=== PATIENT | male | born 1950 | race Caucasian/White ===

== ENCOUNTER 2017-01-19 13:49 | Inpatient (IN) | payer OTHER ==
[2017-01-19 15:55] VITALS: BMI 25.8
--- NOTE | 2017-01-19 18:16 | HP ---
COWS - Scale Resting Pulse: 1= CT 81-100 Sweatin= Chills/Flushing Restless Observation: 3= Extraneous Movement Pupil Size: 0= Normal to Room Light Bone or Joint Aches: 2= Severe Diffuse Aches Runny Nose/ Eye Tearin= Runny Nose/Eyes GI Upset > 30mins: 1= Stomach Cramp Tremor Observation: 2= Slight Tremor Visible Yawning Observation: 0= None Anxiety or Irritability: 2=Irritable/Anxious Goose Flesh Skin: 0=Smooth Skin COWS Score: 14 CIWA Score - CIWA Score Nausea/Vomitin-Mild Nausea/No Vomiting Muscle Tremors: 4-Moderate,w/Arms Extend Anxiety: 4-Mod. Anxious/Guarded Agitation: 4-Moderately Restless Paroxysmal Sweats: 1-Minimal Palms Moist Orientation: 1-Uncertain about Date Tacttile Disturbances: 0-None Auditory Disturbances: 0-None Visual Disturbances: 0-None Headache: 0-None Present CIWA-Ar Total Score: 15 Admission ROS S - HPI Chief Complaint: withdrawal sx Allergies/Adverse Reactions: Allergies Allergy/AdvReac Type Severity Reaction Status Date / Time Sulfa (Sulfonamide Allergy Severe Hives Verified 01/19/17 17:32 Antibiotics) History of Present Illness: 66 years old male with long history of alcohol opiate nicotine dependence has seizure asthma copd cardiac arrhythemia and anxiety is admitted to detox LAST DOSE PROPRANOLOL 80 MG 12/19/16 Exam Limitations: No Limitations - Ebola screening Have you traveled outside of the country in the last 21 days: No (N) Have you had contact with anyone from an Ebola affected area: No Have you been sick,other than usual withdrawal symptoms: No Do you have a fever: No - Review of Systems Constitutional: Changes in sleep, Weight Stable EENT: reports: Blurred Vision (eye glasses), Dental Problems (multiple teeth missing) Respiratory: reports: SOB with Exertion, Productive cough (yellowish) GI: reports: Nausea, Poor Fluid Intake, Abdominal cramping : reports: No Symptoms Reported Musculoskeletal: reports: Back Pain, Joint Pain, Muscle Pain, Neck Pain Integumentary: reports: Change in Color (hands) Neuro: reports: Seizure (since age 65, tegretol), Tremors Endocrine: reports: No Symptoms Reported Hematology: reports: No Symptoms Reported Psychiatric: reports: Judgement Intact, Anxious, Depressed Other Systems: Reviewed and Negative Patient History - Patient Medical History Hx Anemia: No Hx Asthma: Yes Hx Chronic Obstructive Pulmonary Disease (COPD): Yes Hx Cancer: No Hx Cardiac Disorders: No Hx Hypertension: Yes Hx Hypercholesterolemia: No Hx Pacemaker: No HX Cerebrovascular Accident: No Hx Seizures: Yes (x 1 year) Hx Dementia: No Hx Diabetes: No Hx Gastrointestinal Disorders: No Hx Liver Disease: No Hx Genitourinary Disorders: No Hx Sexually Transmitted Disorders: No Hx Renal Disease (ESRD): No Hx Thyroid Disease: No Hx Human Immunodeficiency Virus (HIV): No Hx Hepatitis C: Yes Hx Depression: Yes Hx Suicide Attempt: Yes (age 15, cut arms) Hx Bipolar Disorder: No Hx Schizophrenia: No - Patient Surgical History Past Surgical History: Yes Hx Neurologic Surgery: Yes (spinal lower 1997 2006 and 2014 ) Hx Cataract Extraction: No Hx Cardiac Surgery: No Hx Lung Surgery: No Hx Breast Surgery: No Hx Breast Biopsy: No Hx Abdominal Surgery: No Hx Appendectomy: No Hx Cholecystectomy: No Hx Genitourinary Surgery: No Hx Orthopedic Surgery: Yes (knees 2011) Anesthesia Reaction: No - PPD History Previous Implant?: Yes Documented Results: Negative w/o proof Implanted On Prior [facility] Admission?: No PPD to be Administered?: Yes - Smoking Cessation Smoking history: Current every day smoker Have you smoked in the past 12 months: Yes Aproximately how many cigarettes per day: 40 Cigars Per Day: 0 Hx Chewing Tobacco Use: No Initiated information on smoking cessation: Yes 'Breaking Loose' booklet given: 01/19/17 - Substance & Tx. History Hx Alcohol Use: Yes Substance Use Type: None, Alcohol, Heroin Hx Substance Use Treatment: Yes (2009 [facility]) - Substances Abused Alcohol Route: Oral Frequency: Daily Amount used: whisky 1 L Age of first use: 16 Date of Last Use: 01/19/17 Heroin Route: Injection Frequency: Daily Amount used: 5 BAGS Age of first use: 56 Date of Last Use: 01/19/17 Family Disease History - Family Disease History Family Disease History: Heart Disease: Mother, [place]: Father Admission Physical Exam [facility] - Vital Signs Vital Signs: Vital Signs - 24 hr 01/19/17 15:51 Temperature 97.4 F L Pulse Rate 82 Respiratory 20 Rate Blood Pressure 129/83 - Physical General Appearance: Yes: Nourished, Appropriately Dressed, Mild Distress, Alcohol on Breath, Tremorous, Irritable, Sweating, Anxious HEENTM: Yes: Hearing grossly Normal, Normal ENT Inspection, Normocephalic, Normal Voice, Other (EYE GLASSES) Respiratory: Yes: Chest Non-Tender, No Respiratory Distress, No Accessory Muscle Use Neck: Yes: Supple, Trachea in good position Breast: Yes: Breasts Symetrical Cardiology: Yes: Regular Rhythm, Regular Rate, S1, S2 Abdominal: Yes: Non Tender, Soft, Increased Bowel Sounds Genitourinary: Yes: Within Normal Limits Back: Yes: Normal Inspection Musculoskeletal: Yes: full range of Motion, Gait Steady, Back pain, Muscle Pain Extremities: Yes: Normal Range of Motion, Non-Tender, Tremors Neurological: Yes: Alert, Motor Strength 5/5, Normal Response, Depressed Affect Integumentary: Yes: Warm, Track [place] Lymphatic: Yes: Within Normal Limits - Diagnostic (1) Alcohol dependence with uncomplicated withdrawal Current Visit: Yes Status: Acute (2) Opioid dependence with withdrawal Current Visit: Yes Status: Acute (3) Nicotine dependence Current Visit: Yes Status: Acute Qualifiers: Nicotine product type: cigarettes Substance use status: in withdrawal Qualified Code(s): F17.213 - Nicotine dependence, cigarettes, with withdrawal (4) Asthma Current Visit: Yes Status: Chronic Qualifiers: Asthma severity: mild persistent Asthma complication type: with status asthmaticus Qualified Code(s): J45.32 - Mild persistent asthma with status asthmaticus (5) COPD (chronic obstructive pulmonary disease) Current Visit: Yes Status: Chronic Qualifiers: COPD type: emphysema Emphysema type: unspecified Qualified Code( s): J43.9 - Emphysema, unspecified (6) Hypertension Current Visit: Yes Status: Acute Qualifiers: Hypertension type: essential hypertension Qualified Code(s): I10 - Essential (primary) hypertension (7) Hepatitis C Current Visit: Yes Status: Acute Qualifiers: Viral hepatitis chronicity: chronic Hepatic coma status: without hepatic coma Qualified Code(s): B18.2 - Chronic viral hepatitis C (8) Cerumen debris on tympanic membrane of both ears Current Visit: Yes Status: Acute (9) Anxiety and depression Current Visit: Yes Status: Suspected Cleared for Admission [facility] - Detox or Rehab S Level of Care: Medically Managed Detox Regimen/Protocol: Methadone/Librium [facility] Breath Alcohol Content Breath Alcohol Content: 0.066 Urine Drug Screen - Results Drug Screen Negative: No Urine Drug Screen Results: THC-Marijuana, OPI-Opiates, BZO-Benzodiazepines, MTD- Methadone, TCA-Tricyclic Antidepress, OXY-Oxycodone
[2017-01-19] MEDS ORDERED: P-EPHED 60MG/TRIPROLIDI 2.5MG TABLET PO PRN (18:22)
[2017-01-19] MEDS ORDERED: MAGNESIUM CITRATE 300 ML BOTTLE PO PRN (18:22)
[2017-01-19] MEDS ORDERED: MAGNESIUM HYDROX 2400MG/30ML ORAL SUSPENSION 30 ML CUP PO PRN (18:22)
[2017-01-19] MEDS ORDERED: MAG HYDROX/AL HYDROX/SIMETH 30 ML UNIT-DOSE CUP PO PRN (18:22)
[2017-01-19] MEDS ORDERED: LOPERAMIDE HCL 2 MG CAPSULE PO PRN (18:22)
[2017-01-19] MEDS ORDERED: METHADONE HCL 10 MG TABLET (FOR DETOX USE ONLY) PO ONE ×2 (18:22→23:00)
[2017-01-19] MEDS ORDERED: MENTHOL/PHENOL 1 EACH UD MM PRN (18:22)
[2017-01-19] MEDS ORDERED: IBUPROFEN 400 MG TABLET (FP) PO PRN (18:22)
[2017-01-19] MEDS ORDERED: diphenhydrAMINE HCL 50 MG CAPSULE PO PRN (18:22)
[2017-01-19] MEDS: chlordiazePOXIDE HCL 25 MG CAPSULE PO PRN (19:13)
[2017-01-19 19:59] LABS: URINE APPEARANCE SLCLOUDY; URINE BILIRUBIN NEGATIVE (NEGATIVE); URINE BLOOD NEGATIVE (NEGATIVE); URINE COLOR DKYELLOW; URINE GLUCOSE (UA) NEGATIVE (NEGATIVE); URINE KETONE NEGATIVE (NEGATIVE); URINE LEUK ESTERASE NEGATIVE (NEGATIVE); URINE NITRITE NEGATIVE (NEGATIVE); URINE PROTEIN 1+ (NEGATIVE)
[2017-01-19 20:03] LABS: URINE BACTERIA RARE /hpf (NONE SEEN); URINE HYALINE CAST 1 /lpf; URINE MUCUS FEW; URINE RBC 1 /hpf (0-3); URINE WBC 1 /hpf (3-5)
[2017-01-19] MEDS: NICOTINE POLACRILEX 4 MG GUM BC PRN ×2 (20:07→22:08)
[2017-01-19] MEDS: THIAMINE HCL 100 MG TABLET (FP) PO SCH (22:04)
[2017-01-19] MEDS: chlordiazePOXIDE HCL 25 MG CAPSULE PO SCH (22:04)
[2017-01-19] MEDS: BUDESONIDE/FORMETEROL FUMARATE 80/4.5 mcg INHALER IH SCH (22:05)
[2017-01-19] MEDS: CARBAMIDE PEROXIDE 6.5% OTIC 15 ML BOTTLE AU SCH (22:54)
[2017-01-19] MEDS: OXcarbazepine 300 MG TABLET (UD) PO SCH (22:55)
[2017-01-20] MEDS: chlordiazePOXIDE HCL 25 MG CAPSULE PO PRN (02:50)
[2017-01-20] MEDS: NICOTINE POLACRILEX 4 MG GUM BC PRN ×5 (02:51→22:49)
[2017-01-20] MEDS: ALBUTEROL SO4 6.7 GM HFA INHALER IH PRN (03:24)
[2017-01-20] MEDS: chlordiazePOXIDE HCL 25 MG CAPSULE PO SCH ×4 (05:33→22:16)
[2017-01-20] MEDS: CYCLOBENZAPRINE HCL 10 MG TABLET (FP) PO PRN (07:41)
[2017-01-20] MEDS ORDERED: METHADONE HCL 10 MG TABLET (FOR DETOX USE ONLY) PO SCH (10:00)
[2017-01-20] MEDS: BUDESONIDE/FORMETEROL FUMARATE 80/4.5 mcg INHALER IH SCH ×2 (10:05→22:17)
[2017-01-20] MEDS: CARBAMIDE PEROXIDE 6.5% OTIC 15 ML BOTTLE AU SCH ×2 (10:05→22:17)
[2017-01-20] MEDS: PRENATAL VITAMINS W/ FOLIC ACID TABLET (FP) PO SCH (10:06)
[2017-01-20] MEDS: OXcarbazepine 300 MG TABLET (UD) PO SCH ×2 (10:06→22:16)
[2017-01-20] MEDS: ASPIRIN 81 MG CHEWABLE TABLETS PO SCH (10:06)
[2017-01-20] MEDS: NICOTINE 21 MG/24 HOURS TOPICAL PATCH TD SCH (10:07)
[2017-01-20 10:12] LABS: MCHC 32.9 g/dl (32.0-35.9); MEAN CELL VOLUME 94.2 fl (80-96); PLATELET COUNT 159 K/MM3 (134-434); RDW 14.1 % (11.9-15.9); WHITE BLOOD COUNT 8.2 K/mm3 (4.0-10.0)
[2017-01-20 11:00] LABS: ALBUMIN 3.6 g/dl (3.4-5.0); ANION GAP 5 (8-16); CALCIUM 8.4 mg/dL (8.5-10.1); CO2 32 mmol/L (21-32); GLUCOSE,RANDOM 88 mg/dL (74-106)
[2017-01-20 11:06] LABS: ALK PHOS 115 U/L (45-117); BILIRUBIN,TOTAL 0.4 mg/dL (0.2-1.0); CREATININE 1.3 mg/dL (0.7-1.3); SGOT/AST 27 U/L (15-37); SGPT/ALT 41 U/L (12-78); TOT PROT 7.2 g/dl (6.4-8.2)
--- NOTE | 2017-01-20 11:20 | PN ---
[facility] CIWA - CIWA Score Nausea/Vomitin-No Nausea/No Vomiting Muscle Tremors: 4-Moderate,w/Arms Extend Anxiety: 3 Agitation: 3 Paroxysmal Sweats: 1-Minimal Palms Moist Orientation: 0-Oriented Tacttile Disturbances: 3-Moderate Itch/Numb/Burn Auditory Disturbances: 0-None Visual Disturbances: 0-None Headache: 3-Moderate CIWA-Ar Total Score: 17 [facility] COWS - Scale Resting Pulse: 0= [place] 80 or Below Sweatin= Chills/Flushing Restless Observation: 1= Difficult to Sit Still Pupil Size: 0= Normal to Room Light Bone or Joint Aches: 2= Severe Diffuse Aches Runny Nose/ Eye Tearin= Nasal Congestion GI Upset > 30mins: 1= Stomach Cramp Tremor Observation of Outstretched Hands: 2= Slight Tremor Visible Yawning Observation: 1= 1-2x During Session Anxiety or Irritability: 2=Irritable/Anxious Goose Flesh Skin: 3=Piloerection COWS Score: 14 [facility] Progress Note (SOAP) Subjective: Interrupted sleep, Tremors, H/A, Body Aches. Objective: PT. A & O X 3, OBSERVED AMBULATING ON UNIT. NO ACUTE DISTRESS. 01/20/17 11:21 Vital Signs Temperature 96.9 F L 01/20/17 09:07 Pulse Rate 79 01/20/17 09:07 Respiratory Rate 18 01/20/17 09:07 Blood Pressure 160/93 01/20/17 09:07 O2 Sat by Pulse Oximetry (%) Laboratory Tests 01/19/17 01/20/17 01/20/17 16:30 07:00 07:00 WBC 8.2 RBC 4.62 Hgb 14.4 Hct 43.6 MCV 94.2 MCH 31.0 MCHC 32.9 RDW 14.1 Plt Count 159 MPV 11.0 Sodium 140 Potassium 4.8 Chloride 103 Carbon Dioxide 32 Anion Gap 5 L BUN 21 H Creatinine 1.3 Creat Clearance w eGFR 55.58 Random Glucose 88 Calcium 8.4 L Total Bilirubin 0.4 AST 27 ALT 41 Alkaline Phosphatase 115 Total Protein 7.2 Albumin 3.6 Urine Color Dkyellow Urine Appearance Slcloudy Urine pH 5.0 Ur Specific [place] 1.025 Urine Protein 1+ H Urine Glucose (UA) Negative Urine Ketones Negative Urine Blood Negative Urine Nitrite Negative Urine Bilirubin Negative Urine Urobilinogen 2.0 Ur Leukocyte Esterase Negative Urine RBC 1 Urine WBC 1 Ur Epithelial Cells Rare Urine Bacteria Rare Hyaline Casts 1 Urine Mucus Few RPR Titer 01/20/17 07:00 WBC RBC Hgb Hct MCV MCH MCHC RDW Plt Count MPV Sodium Potassium Chloride Carbon Dioxide Anion Gap BUN Creatinine Creat Clearance w eGFR Random Glucose Calcium Total Bilirubin AST ALT Alkaline Phosphatase Total Protein Albumin Urine Color Urine Appearance Urine pH Ur Specific [place] Urine Protein Urine Glucose (UA) Urine Ketones Urine Blood Urine Nitrite Urine Bilirubin Urine Urobilinogen Ur Leukocyte Esterase Urine RBC Urine WBC Ur Epithelial Cells Urine Bacteria Hyaline Casts Urine Mucus RPR Titer Nonreactive labs noted. Assessment: 01/20/17 11:22 WITHDRAWAL SYMPTOMS. Plan: CONTINUE DETOX. REPEAT UA AND CMP FOR ADMISSION ABNORMALITIES.
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
[2017-01-20] MEDS: busPIRone HCL 10 MG TABLET (FP) PO SCH ×2 (13:23→22:16)
[2017-01-20] MEDS: FLUoxetine HCL 20 MG CAPSULE (FP) PO SCH (13:23)
[2017-01-20] MEDS: ALBUTEROL SO4 2.5/IPRATROPIUM 0.5 INH SOL 3 ML VIAL.NEB. NEB PRN (15:37)
[2017-01-20] MEDS: ACETAMINOPHEN 325 MG TABLET (FP) PO PRN (17:17)
[2017-01-20 18:07] LABS: URINE APPEARANCE CLEAR; URINE BILIRUBIN NEGATIVE (NEGATIVE); URINE BLOOD NEGATIVE (NEGATIVE); URINE COLOR STRAW; URINE GLUCOSE (UA) NEGATIVE (NEGATIVE); URINE KETONE NEGATIVE (NEGATIVE); URINE LEUK ESTERASE NEGATIVE (NEGATIVE); URINE NITRITE NEGATIVE (NEGATIVE); URINE PROTEIN NEGATIVE (NEGATIVE); URINE UROBILINOGEN NEGATIVE mg/dL (0.2-1.0)
--- NOTE | 2017-01-20 18:28 | EKG ---
Test Reason : Blood Pressure : / mmHG Vent. Rate : 080 BPM Atrial Rate : 080 BPM P-R Int : 136 ms QRS Dur : 098 ms QT Int : 404 ms P-R-T Axes : 068 050 059 degrees QTc Int : 465 ms NORMAL SINUS RHYTHM INCOMPLETE RIGHT BUNDLE BRANCH BLOCK BORDERLINE ECG NO PREVIOUS ECGS AVAILABLE REPEAT EKG IF CLINICALLY INDICATED Confirmed by FARAZ YOU MD ([id number]) on 01/20/2017 6:28:23 PM Referred By: Confirmed By:FARAZ YOU MD
[2017-01-20] MEDS ORDERED: OXcarbazepine 300 MG/5 ML 250 ML BULK BOTTLE PO SCH (22:00)
[2017-01-20] MEDS: QUEtiapine FUMARATE 50 MG TABLET PO SCH (22:16)
[2017-01-20] MEDS: THIAMINE HCL 100 MG TABLET (FP) PO SCH (22:19)
[2017-01-21] MEDS: chlordiazePOXIDE HCL 25 MG CAPSULE PO SCH ×3 (05:33→16:59)
[2017-01-21] MEDS: guaiFENesin/D-METHORPHAN HB 10 ML UNIT-DOSE CUPS PO PRN ×2 (05:33→22:26)
[2017-01-21] MEDS: CYCLOBENZAPRINE HCL 10 MG TABLET (FP) PO PRN (05:33)
[2017-01-21] MEDS: busPIRone HCL 10 MG TABLET (FP) PO SCH ×3 (05:33→22:04)
[2017-01-21] MEDS: ALBUTEROL SO4 2.5/IPRATROPIUM 0.5 INH SOL 3 ML VIAL.NEB. NEB PRN ×2 (07:17→15:23)
[2017-01-21] MEDS: NICOTINE POLACRILEX 4 MG GUM BC PRN ×6 (07:18→22:07)
[2017-01-21] MEDS: BUDESONIDE/FORMETEROL FUMARATE 80/4.5 mcg INHALER IH SCH ×2 (10:04→22:03)
[2017-01-21] MEDS: OXcarbazepine 300 MG TABLET (UD) PO SCH ×2 (10:05→22:04)
[2017-01-21] MEDS: FLUoxetine HCL 20 MG CAPSULE (FP) PO SCH (10:05)
[2017-01-21] MEDS: ASPIRIN 81 MG CHEWABLE TABLETS PO SCH (10:05)
[2017-01-21] MEDS: METHADONE HCL 5 MG TABLET (FOR DETOX USE ONLY) PO SCH (10:05)
[2017-01-21] MEDS: PRENATAL VITAMINS W/ FOLIC ACID TABLET (FP) PO SCH (10:06)
[2017-01-21] MEDS: NICOTINE 21 MG/24 HOURS TOPICAL PATCH TD SCH (10:06)
[2017-01-21] MEDS: CARBAMIDE PEROXIDE 6.5% OTIC 15 ML BOTTLE AU SCH ×2 (10:06→22:03)
--- NOTE | 2017-01-21 11:31 | PN ---
[facility] CIWA - CIWA Score Nausea/Vomitin-No Nausea/No Vomiting Muscle Tremors: 4-Moderate,w/Arms Extend Anxiety: 4-Mod. Anxious/Guarded Agitation: 4-Moderately Restless Paroxysmal Sweats: 1-Minimal Palms Moist Orientation: 0-Oriented Tacttile Disturbances: 3-Moderate Itch/Numb/Burn Auditory Disturbances: 0-None Visual Disturbances: 0-None Headache: 0-None Present CIWA-Ar Total Score: 16 S COWS - Scale Resting Pulse: 0= [place] 80 or Below Sweatin= Chills/Flushing Restless Observation: 3= Extraneous Movement Pupil Size: 0= Normal to Room Light Bone or Joint Aches: 4=Acute Joint/Muscle Pain Runny Nose/ Eye Tearin= Nasal Congestion GI Upset > 30mins: 1= Stomach Cramp Tremor Observation of Outstretched Hands: 1= Tremor [place], Not Seen Yawning Observation: 1= 1-2x During Session Anxiety or Irritability: 1=Feels Anxious/Irritable Goose Flesh Skin: 0=Smooth Skin COWS Score: 13 S Progress Note (SOAP) Subjective: ANXIETY,SWEATS,BACK PAIN,INTERMITTENT SLEEP. Objective: 01/21/17 11:30 Vital Signs Temperature 97.4 F L 01/21/17 09:40 Pulse Rate 65 01/21/17 09:40 Respiratory Rate 18 01/21/17 09:40 Blood Pressure 124/84 01/21/17 09:40 O2 Sat by Pulse Oximetry (%) Laboratory Last Values WBC 8.2 K/mm3 (4.0-10.0) 01/20/17 07:00 RBC 4.62 M/mm3 (4.00-5.60) 01/20/17 07:00 Hgb 14.4 GM/dL (11.7-16.9) 01/20/17 07:00 Hct 43.6 % (35.4-49) 01/20/17 07:00 MCV 94.2 fl (80-96) 01/20/17 07:00 MCH 31.0 pg (25.7-33.7) 01/20/17 07:00 MCHC 32.9 g/dl (32.0-35.9) 01/20/17 07:00 RDW 14.1 % (11.9-15.9) 01/20/17 07:00 Plt Count 159 K/MM3 (134-434) 01/20/17 07:00 MPV 11.0 fl (7.5-11.1) 01/20/17 07:00 Sodium 140 mmol/L (136-145) 01/20/17 07:00 Potassium 4.8 mmol/L (3.5-5.1) 01/20/17 07:00 Chloride 103 mmol/L (98-107) 01/20/17 07:00 Carbon Dioxide 32 mmol/L (21-32) 01/20/17 07:00 Anion Gap 5 (8-16) L 01/20/17 07:00 BUN 21 mg/dL (7-18) H 01/20/17 07:00 Creatinine 1.3 mg/dL (0.7-1.3) 01/20/17 07:00 Creat Clearance w eGFR 55.58 (>60) 01/20/17 07:00 Random Glucose 88 mg/dL (74-106) 01/20/17 07:00 Calcium 8.4 mg/dL (8.5-10.1) L 01/20/17 07:00 Total Bilirubin 0.4 mg/dL (0.2-1.0) 01/20/17 07:00 AST 27 U/L (15-37) 01/20/17 07:00 ALT 41 U/L (12-78) 01/20/17 07:00 Alkaline Phosphatase 115 U/L (45-117) 01/20/17 07:00 Total Protein 7.2 g/dl (6.4-8.2) 01/20/17 07:00 Albumin 3.6 g/dl (3.4-5.0) 01/20/17 07:00 Urine Color Straw 01/20/17 13:25 Urine Appearance Clear 01/20/17 13:25 Urine pH 7.0 (5.0-8.0) D 01/20/17 13:25 Ur Specific [place] 1.015 (1.005-1.025) 01/20/17 13:25 Urine Protein Negative (NEGATIVE) 01/20/17 13:25 Urine Glucose (UA) Negative (NEGATIVE) 01/20/17 13:25 Urine Ketones Negative (NEGATIVE) 01/20/17 13:25 Urine Blood Negative (NEGATIVE) 01/20/17 13:25 Urine Nitrite Negative (NEGATIVE) 01/20/17 13:25 Urine Bilirubin Negative (NEGATIVE) 01/20/17 13:25 Urine Urobilinogen Negative mg/dL (0.2-1.0) 01/20/17 13:25 Ur Leukocyte Esterase Negative (NEGATIVE) 01/20/17 13:25 Urine RBC 1 /hpf (0-3) 01/19/17 16:30 Urine WBC 1 /hpf (3-5) 01/19/17 16:30 Ur Epithelial Cells Rare /hpf (FEW) 01/19/17 16:30 Urine Bacteria Rare /hpf (NONE SEEN) 01/19/17 16:30 Hyaline Casts 1 /lpf 01/19/17 16:30 Urine Mucus Few 01/19/17 16:30 RPR Titer Nonreactive (NONREACTIVE) 01/20/17 07:00 Assessment: 01/21/17 11:30 WITHDRAWAL SX Plan: CONTINUE DETOX INCREASE PO FLUIDS
[2017-01-21] MEDS: chlordiazePOXIDE HCL 25 MG CAPSULE PO PRN (12:11)
[2017-01-21] MEDS: CYCLOBENZAPRINE HCL 10 MG TABLET (FP) PO SCH ×2 (13:43→22:04)
[2017-01-21] MEDS: ACETAMINOPHEN 325 MG TABLET (FP) PO PRN (14:45)
[2017-01-21] MEDS: QUEtiapine FUMARATE 50 MG TABLET PO SCH (22:03)
[2017-01-21] MEDS: chlordiazePOXIDE 5 MG CAPSULE PO SCH (22:03)
[2017-01-21] MEDS: THIAMINE HCL 100 MG TABLET (FP) PO SCH (22:04)
[2017-01-22] MEDS: busPIRone HCL 10 MG TABLET (FP) PO SCH ×3 (06:06→22:11)
[2017-01-22] MEDS: chlordiazePOXIDE 5 MG CAPSULE PO SCH ×3 (06:06→17:26)
[2017-01-22] MEDS: CYCLOBENZAPRINE HCL 10 MG TABLET (FP) PO SCH ×3 (06:06→22:12)
[2017-01-22] MEDS: NICOTINE POLACRILEX 4 MG GUM BC PRN ×5 (07:12→20:01)
[2017-01-22] MEDS: BUDESONIDE/FORMETEROL FUMARATE 80/4.5 mcg INHALER IH SCH ×2 (10:09→23:17)
[2017-01-22] MEDS: PRENATAL VITAMINS W/ FOLIC ACID TABLET (FP) PO SCH (10:09)
[2017-01-22] MEDS: ASPIRIN 81 MG CHEWABLE TABLETS PO SCH (10:09)
[2017-01-22] MEDS: FLUoxetine HCL 20 MG CAPSULE (FP) PO SCH (10:09)
[2017-01-22] MEDS: CARBAMIDE PEROXIDE 6.5% OTIC 15 ML BOTTLE AU SCH ×3 (10:10→23:17)
[2017-01-22] MEDS: NICOTINE 21 MG/24 HOURS TOPICAL PATCH TD SCH (10:10)
[2017-01-22] MEDS: METHADONE HCL 5 MG TABLET (FOR DETOX USE ONLY) PO SCH (10:11)
[2017-01-22 10:38] LABS: ALBUMIN 3.6 g/dl (3.4-5.0); ALK PHOS 109 U/L (45-117); ANION GAP 8 (8-16); BILIRUBIN,TOTAL 0.9 mg/dL (0.2-1.0); CALCIUM 9.2 mg/dL (8.5-10.1); CO2 29 mmol/L (21-32); CREATININE 1.3 mg/dL (0.7-1.3); GLUCOSE,RANDOM 85 mg/dL (74-106); SGPT/ALT 39 U/L (12-78); TOT PROT 7.4 g/dl (6.4-8.2)
[2017-01-22] MEDS: OXcarbazepine 300 MG TABLET (UD) PO SCH ×2 (11:06→22:11)
[2017-01-22 11:37] LABS: SGOT/AST 31 U/L (15-37)
--- NOTE | 2017-01-22 11:41 | PN ---
[facility] Progress Note (SOAP) Subjective: Body Aches, Anxious, Sweating, H/A, Stomach Cramping. Objective: PT. A & O X 3, OBSERVED AMBULATING ON UNIT. NO ACUTE DISTRESS. PT. DENIES CHEST PAIN. 01/22/17 11:36 Vital Signs Temperature 96.9 F L 01/22/17 09:44 Pulse Rate 64 01/22/17 09:44 Respiratory Rate 18 01/22/17 09:44 Blood Pressure 110/72 01/22/17 09:44 O2 Sat by Pulse Oximetry (%) Laboratory Tests 01/19/17 01/20/17 01/20/17 16:30 07:00 07:00 WBC 8.2 RBC 4.62 Hgb 14.4 Hct 43.6 MCV 94.2 MCH 31.0 MCHC 32.9 RDW 14.1 Plt Count 159 MPV 11.0 Sodium 140 Potassium 4.8 Chloride 103 Carbon Dioxide 32 Anion Gap 5 L BUN 21 H Creatinine 1.3 Creat Clearance w eGFR 55.58 Random Glucose 88 Calcium 8.4 L Total Bilirubin 0.4 AST 27 ALT 41 Alkaline Phosphatase 115 Total Protein 7.2 Albumin 3.6 Urine Color Dkyellow Urine Appearance Slcloudy Urine pH 5.0 Ur Specific [place] 1.025 Urine Protein 1+ H Urine Glucose (UA) Negative Urine Ketones Negative Urine Blood Negative Urine Nitrite Negative Urine Bilirubin Negative Urine Urobilinogen 2.0 Ur Leukocyte Esterase Negative Urine RBC 1 Urine WBC 1 Ur Epithelial Cells Rare Urine Bacteria Rare Hyaline Casts 1 Urine Mucus Few RPR Titer 01/20/17 01/20/17 07:00 13:25 WBC RBC Hgb Hct MCV MCH MCHC RDW Plt Count MPV Sodium Potassium Chloride Carbon Dioxide Anion Gap BUN Creatinine Creat Clearance w eGFR Random Glucose Calcium Total Bilirubin AST ALT Alkaline Phosphatase Total Protein Albumin Urine Color Straw Urine Appearance Clear Urine pH 7.0 D Ur Specific [place] 1.015 Urine Protein Negative Urine Glucose (UA) Negative Urine Ketones Negative Urine Blood Negative Urine Nitrite Negative Urine Bilirubin Negative Urine Urobilinogen Negative Ur Leukocyte Esterase Negative Urine RBC Urine WBC Ur Epithelial Cells Urine Bacteria Hyaline Casts Urine Mucus RPR Titer Nonreactive LABS NOTED. RESULTS OF REPEAT CMP AND UA NOTED. 01/22/17 11:37 01/22/17 12:08 Assessment: 01/22/17 11:37 WITHDRAWAL SYMPTOMS. Plan: CONTINUE DETOX. INCREASE PO FLUID INTAKE.
[2017-01-22] MEDS: chlordiazePOXIDE HCL 25 MG CAPSULE PO PRN (12:54)
[2017-01-22] MEDS: ALBUTEROL SO4 6.7 GM HFA INHALER IH PRN (17:26)
[2017-01-22] MEDS ORDERED: hydrOXYzine PAMOATE 50 MG CAPSULE (FP) PO ONE (20:21)
[2017-01-22] MEDS: QUEtiapine FUMARATE 50 MG TABLET PO SCH (22:11)
[2017-01-22] MEDS: THIAMINE HCL 100 MG TABLET (FP) PO SCH (22:12)
[2017-01-22] MEDS: chlordiazePOXIDE HCL 10 MG CAPSULE PO SCH (22:13)
[2017-01-23] MEDS: chlordiazePOXIDE HCL 10 MG CAPSULE PO SCH ×3 (05:16→17:22)
[2017-01-23] MEDS: busPIRone HCL 10 MG TABLET (FP) PO SCH ×3 (05:16→22:14)
[2017-01-23] MEDS: CYCLOBENZAPRINE HCL 10 MG TABLET (FP) PO SCH ×3 (05:17→22:14)
[2017-01-23] MEDS: NICOTINE POLACRILEX 4 MG GUM BC PRN ×5 (07:22→22:16)
[2017-01-23] MEDS ORDERED: METHADONE HCL 10 MG TABLET (FOR DETOX USE ONLY) PO SCH (10:00)
[2017-01-23] MEDS: PRENATAL VITAMINS W/ FOLIC ACID TABLET (FP) PO SCH (10:06)
[2017-01-23] MEDS: BUDESONIDE/FORMETEROL FUMARATE 80/4.5 mcg INHALER IH SCH ×2 (10:06→22:14)
[2017-01-23] MEDS: CARBAMIDE PEROXIDE 6.5% OTIC 15 ML BOTTLE AU SCH (10:07)
[2017-01-23] MEDS: ASPIRIN 81 MG CHEWABLE TABLETS PO SCH (10:07)
[2017-01-23] MEDS: FLUoxetine HCL 20 MG CAPSULE (FP) PO SCH (10:07)
[2017-01-23] MEDS: NICOTINE 21 MG/24 HOURS TOPICAL PATCH TD SCH (10:07)
[2017-01-23] MEDS: OXcarbazepine 300 MG TABLET (UD) PO SCH ×2 (10:07→22:14)
[2017-01-23] MEDS: ACETAMINOPHEN 325 MG TABLET (FP) PO PRN (12:13)
[2017-01-23] MEDS: hydrOXYzine PAMOATE 50 MG CAPSULE (FP) PO PRN ×2 (12:13→19:44)
--- NOTE | 2017-01-23 12:16 | PN ---
[facility] Progress Note (SOAP) Subjective: Sweating, Anxious, Stomach Cramping, Body Aches, H/A, Nausea. Objective: PT. A & O X 3, OBSERVED AMBULATING ON UNIT. NO ACUTE DISTRESS. 01/23/17 12:14 Vital Signs Temperature 96.0 F L 01/23/17 11:06 Pulse Rate 67 01/23/17 11:06 Respiratory Rate 20 01/23/17 11:06 Blood Pressure 114/75 01/23/17 11:06 O2 Sat by Pulse Oximetry (%) Laboratory Tests 01/19/17 01/20/17 01/20/17 16:30 07:00 07:00 WBC 8.2 RBC 4.62 Hgb 14.4 Hct 43.6 MCV 94.2 MCH 31.0 MCHC 32.9 RDW 14.1 Plt Count 159 MPV 11.0 Sodium 140 Potassium 4.8 Chloride 103 Carbon Dioxide 32 Anion Gap 5 L BUN 21 H Creatinine 1.3 Creat Clearance w eGFR 55.58 Random Glucose 88 Calcium 8.4 L Total Bilirubin 0.4 AST 27 ALT 41 Alkaline Phosphatase 115 Total Protein 7.2 Albumin 3.6 Urine Color Dkyellow Urine Appearance Slcloudy Urine pH 5.0 Ur Specific [place] 1.025 Urine Protein 1+ H Urine Glucose (UA) Negative Urine Ketones Negative Urine Blood Negative Urine Nitrite Negative Urine Bilirubin Negative Urine Urobilinogen 2.0 Ur Leukocyte Esterase Negative Urine RBC 1 Urine WBC 1 Ur Epithelial Cells Rare Urine Bacteria Rare Hyaline Casts 1 Urine Mucus Few RPR Titer 01/20/17 01/20/17 01/22/17 07:00 13:25 07:00 WBC RBC Hgb Hct MCV MCH MCHC RDW Plt Count MPV Sodium 138 Potassium 4.8 Chloride 101 Carbon Dioxide 29 Anion Gap 8 BUN 19 H Creatinine 1.3 Creat Clearance w eGFR 55.58 Random Glucose 85 Calcium 9.2 Total Bilirubin 0.9 D AST 31 ALT 39 Alkaline Phosphatase 109 Total Protein 7.4 Albumin 3.6 Urine Color Straw Urine Appearance Clear Urine pH 7.0 D Ur Specific [place] 1.015 Urine Protein Negative Urine Glucose (UA) Negative Urine Ketones Negative Urine Blood Negative Urine Nitrite Negative Urine Bilirubin Negative Urine Urobilinogen Negative Ur Leukocyte Esterase Negative Urine RBC Urine WBC Ur Epithelial Cells Urine Bacteria Hyaline Casts Urine Mucus RPR Titer Nonreactive LABS NOTED. Assessment: 01/23/17 12:15 WITHDRAWAL SYMPTOMS. Plan: CONTINUE DETOX.
[2017-01-23] MEDS: THIAMINE HCL 100 MG TABLET (FP) PO SCH (22:14)
[2017-01-23] MEDS: QUEtiapine FUMARATE 50 MG TABLET PO SCH (22:14)
[2017-01-24] MEDS ORDERED: METHADONE HCL 5 MG TABLET (FOR DETOX USE ONLY) PO SCH (06:00)
[2017-01-24] MEDS: hydrOXYzine PAMOATE 50 MG CAPSULE (FP) PO PRN (06:09)
[2017-01-24] MEDS: busPIRone HCL 10 MG TABLET (FP) PO SCH (06:09)
[2017-01-24] MEDS: CYCLOBENZAPRINE HCL 10 MG TABLET (FP) PO SCH (06:09)
[2017-01-24] MEDS: NICOTINE POLACRILEX 4 MG GUM BC PRN ×2 (06:11→09:28)
[2017-01-24 10:41] VITALS: BP 112/70; PULSE 66; TEMP 97
--- NOTE | 2017-01-24 23:27 | DS ---
[facility] Detox Discharge Summary Admission Date: 01/19/17 Discharge Date: 01/24/17 - History Present History: Alcohol Dependence, Opioid Dependence Additional Comments: PATIENT REPORTS THAT HE WILL PURSUE OUTPATIENT AA/NA SUPPORT GROUP PROGRAM FOR AFTERCARE AFTER DISCHARGE FROM DETOX. PATIENT ALSO WILL FOLLOW-UP WITH HIS PREVIOUS PSYCHIATRIST DR. CALHOUN, [address] [place] [address] FOR AFTERCARE. PATIENT WAS DISCHARGED FROM UNIT IN STABLE MEDICAL CONDITION. Pertinent Past History: Hep C, Insomnia, HTN, Anxiety / Depression, Asthma, C.O.P.D. (Emphysema), History of Seizures. - Physical Exam Results Vital Signs: Vital Signs Temperature 97 F L 01/24/17 10:40 Pulse Rate 66 01/24/17 10:40 Respiratory Rate 16 01/24/17 10:40 Blood Pressure 112/70 01/24/17 10:40 O2 Sat by Pulse Oximetry (%) Pertinent Admission Physical Exam Findings: WITHDRAWAL SYMPTOMS. Laboratory Tests 01/19/17 01/20/17 01/20/17 16:30 07:00 07:00 WBC 8.2 RBC 4.62 Hgb 14.4 Hct 43.6 MCV 94.2 MCH 31.0 MCHC 32.9 RDW 14.1 Plt Count 159 MPV 11.0 Sodium 140 Potassium 4.8 Chloride 103 Carbon Dioxide 32 Anion Gap 5 L BUN 21 H Creatinine 1.3 Creat Clearance w eGFR 55.58 Random Glucose 88 Calcium 8.4 L Total Bilirubin 0.4 AST 27 ALT 41 Alkaline Phosphatase 115 Total Protein 7.2 Albumin 3.6 Urine Color Dkyellow Urine Appearance Slcloudy Urine pH 5.0 Ur Specific [place] 1.025 Urine Protein 1+ H Urine Glucose (UA) Negative Urine Ketones Negative Urine Blood Negative Urine Nitrite Negative Urine Bilirubin Negative Urine Urobilinogen 2.0 Ur Leukocyte Esterase Negative Urine RBC 1 Urine WBC 1 Ur Epithelial Cells Rare Urine Bacteria Rare Hyaline Casts 1 Urine Mucus Few RPR Titer 01/20/17 01/20/17 01/22/17 07:00 13:25 07:00 WBC RBC Hgb Hct MCV MCH MCHC RDW Plt Count MPV Sodium 138 Potassium 4.8 Chloride 101 Carbon Dioxide 29 Anion Gap 8 BUN 19 H Creatinine 1.3 Creat Clearance w eGFR 55.58 Random Glucose 85 Calcium 9.2 Total Bilirubin 0.9 D AST 31 ALT 39 Alkaline Phosphatase 109 Total Protein 7.4 Albumin 3.6 Urine Color Straw Urine Appearance Clear Urine pH 7.0 D Ur Specific [place] 1.015 Urine Protein Negative Urine Glucose (UA) Negative Urine Ketones Negative Urine Blood Negative Urine Nitrite Negative Urine Bilirubin Negative Urine Urobilinogen Negative Ur Leukocyte Esterase Negative Urine RBC Urine WBC Ur Epithelial Cells Urine Bacteria Hyaline Casts Urine Mucus RPR Titer Nonreactive LABS NOTED. - Treatment Hospital Course: Detox Protocol Followed, Detoxed Safely, Responded well, Discharged Condition Good Patient has Accepted a Rehab Referral to: PT. GOING HOME; ADVISED TO CONSIDER 12 -STEP/AA/NA SUPPORT GROUPS. - Medication Discharge Medications: Ambulatory Orders Buspirone HCl [Buspar -] 15 mg PO QID 01/19/17 Diltiazem Cd [Cardizem Cd -] 120 mg PO BID 01/19/17 Fluoxetine HCl [Prozac -] 40 mg PO BID 01/19/17 Oxcarbazepine [Oxtellar Xr] 600 mg PO BID 01/19/17 Quetiapine Fumarate [Seroquel -] 200 mg PO HS 01/19/17 Propranolol HCl [Inderal Xl] 80 mg PO DAILY #30 mg 01/24/17 - Diagnosis (1) Alcohol dependence with uncomplicated withdrawal Status: Acute (2) Cerumen debris on tympanic membrane of both ears Status: Acute (3) Nicotine dependence Status: Chronic Qualifiers: Nicotine product type: cigarettes Substance use status: in withdrawal Qualified Code(s): F17.213 - Nicotine dependence, cigarettes, with withdrawal (4) Opioid dependence with withdrawal Status: Acute (5) Substance induced mood disorder Status: Acute (6) Asthma Status: Chronic Qualifiers: Asthma severity: mild persistent Asthma complication type: uncomplicated Qualified Code(s): J45.30 - Mild persistent asthma, uncomplicated (7) Bipolar disorder Status: Chronic Qualifiers: Active/Remission status: remission status unspecified Qualified Code (s): F31.9 - Bipolar disorder, unspecified (8) COPD (chronic obstructive pulmonary disease) Status: Chronic Qualifiers: COPD type: emphysema Emphysema type: unspecified Qualified Code( s): J43.9 - Emphysema, unspecified (9) Hepatitis C Status: Chronic Qualifiers: Viral hepatitis chronicity: chronic Hepatic coma status: without hepatic coma Qualified Code(s): B18.2 - Chronic viral hepatitis C (10) Hypertension Status: Chronic Qualifiers: Hypertension type: essential hypertension Qualified Code(s): I10 - Essential (primary) hypertension (11) Insomnia Status: Chronic Qualifiers: Insomnia type: unspecified Qualified Code(s): G47.00 - Insomnia, unspecified (12) Anxiety and depression Status: Suspected - AMA Did Patient Leave Against Medical Advice: No
== END 2017-01-24 09:35 | disposition home or self-care (01) | DRG 897 ==
LOC: YASAS 13:49 → Y3N 18:10
PROVIDERS: ADMIT Internal Medicine Addiction Medicine; ATTEND Internal Medicine Addiction Medicine
PROC: HZ2ZZZZ Detoxification Services for Substance Abuse Treatment (ICD-10-PCS; principal; 2017-01-19)
DX: F11.23 Opioid dependence with withdrawal (principal); F10.230 Alcohol dependence with withdrawal, uncomplicated; F17.213 Nicotine dependence, cigarettes, with withdrawal; F31.9 Bipolar disorder, unspecified; F19.24 Other psychoactive substance dependence with psychoactive substance-induced mood disorder; F41.8 Other specified anxiety disorders; H61.23 Impacted cerumen, bilateral; J43.9 Emphysema, unspecified; B18.2 Chronic viral hepatitis C; I10 Essential (primary) hypertension; G47.00 Insomnia, unspecified; M54.5 Low back pain; I49.9 Cardiac arrhythmia, unspecified; Z86.14 Personal history of Methicillin resistant Staphylococcus aureus infection; Z88.2 Allergy status to sulfonamides; Z86.69 Personal history of other diseases of the nervous system and sense organs; Z91.5 Personal history of self-harm
CPT/HCPCS: 36415; 80053; 81003; 81015; 85027; 86593; 93005; 93010; 94640

== ENCOUNTER 2018-08-21 14:37 | Inpatient (IN) | payer OTHER ==
[2018-08-21 15:03] VITALS: BMI 24.6
--- NOTE | 2018-08-21 15:55 | HP ---
COWS - Scale Resting Pulse: 0= [place] 80 or Below Sweatin= Chills/Flushing Restless Observation: 3= Extraneous Movement Pupil Size: 0= Normal to Room Light Bone or Joint Aches: 1= Mild Discomfort Runny Nose/ Eye Tearin= Nasal Congestion GI Upset > 30mins: 2= Nausea/Diarrhea Tremor Observation: 2= Slight Tremor Visible Yawning Observation: 1= 1-2x During Session Anxiety or Irritability: 1=Feels Anxious/Irritable Goose Flesh Skin: 3=Piloerection COWS Score: 15 CIWA Score Nausea/Vomitin Muscle Tremors: 2 Anxiety: 2 Agitation: 2 Paroxysmal Sweats: 2 Orientation: 0-Oriented Tacttile Disturbances: 2-Mild Itch/Numbness/Burn Auditory Disturbances: 0-None Visual Disturbances: 0-None Headache: 2-Mild CIWA-Ar Total Score: 14 - Admission Criteria OASAS Guidelines: Admission for Medically Managed Detox: Requires at least one of the followin. CIWA greater than 12 2. Seizures within the past 24 hours 3. Delirium tremens within the past 24 hours 4. Hallucinations within the past 24 hours 5. Acute intervention needed for co occurring medical disorder 6. Acute intervention needed for co occurring psychiatric disorder 7. Severe withdrawal that cannot be handled at a lower level of care (continued vomiting, continued diarrhea, abnormal vital signs) requiring intravenous medication and/or fluids 8. Patient presents the following: CIWA greater than 12 Admission Criteria Met: Admission criteria met Admission ROS [facility] Chief Complaint: I want to get off the heroin and the alcohol and enjoy my life Allergies/Adverse Reactions: Allergies Allergy/AdvReac Type Severity Reaction Status Date / Time Sulfa (Sulfonamide Allergy Severe Hives Verified 08/21/18 14:54 Antibiotics) History of Present Illness: 68 year old man with longstanding h/o alcohol and heroin use presents for detox. His last detox was 2 years ago at [facility] with no significant periods of sobriety. He has COPD and was hospitalized for 3 days for exacerbation about 4 weeks ago. He is admitted in stable condition but has expiratory wheezing and SOB on exertion Exam Limitations: No Limitations - Ebola screening Have you traveled outside of the country in the last 21 days: No (N) Have you had contact with anyone from an Ebola affected area: No Have you been sick,other than usual withdrawal symptoms: No Do you have a fever: No - Review of Systems Constitutional: Loss of Appetite, Malaise, Weakness EENT: reports: Nose Congestion Respiratory: reports: Shortness of Breath (on and off), SOB with Exertion, Productive cough Cardiac: reports: Lightheadedness GI: reports: Diarrhea, Nausea, Abdominal cramping : reports: Frequency Musculoskeletal: reports: Muscle Pain, Muscle Weakness Integumentary: reports: Flushing Neuro: reports: Headache, Seizure (3 years ago related to drug use) Endocrine: reports: No Symptoms Reported Hematology: reports: No Symptoms Reported Psychiatric: reports: Anxious, Depressed Other Systems: Reviewed and Negative Patient History - Patient Medical History Hx Anemia: No Hx Asthma: Yes Hx Chronic Obstructive Pulmonary Disease (COPD): Yes Hx Cancer: No Hx Cardiac Disorders: No Hx Congestive Heart Failure: No Hx Hypertension: Yes Hx Hypercholesterolemia: No Hx Pacemaker: No HX Cerebrovascular Accident: No Hx Seizures: Yes (x 1 year) Hx Dementia: No Hx Diabetes: No Hx Gastrointestinal Disorders: No Hx Liver Disease: No Hx Genitourinary Disorders: No Hx Sexually Transmitted Disorders: No Hx Renal Disease (ESRD): No Hx Thyroid Disease: No Hx Human Immunodeficiency Virus (HIV): No Hx Hepatitis C: Yes (Not treated) Hx Depression: Yes Hx Suicide Attempt: Yes (age 15, cut arms) Hx Bipolar Disorder: No Hx Schizophrenia: No - Patient Surgical History Past Surgical History: Yes Hx Neurologic Surgery: Yes (spinal lower 1997 2006 and 2014 ) Hx Cataract Extraction: No Hx Cardiac Surgery: No Hx Lung Surgery: No Hx Breast Surgery: No Hx Breast Biopsy: No Hx Abdominal Surgery: No Hx Appendectomy: No Hx Cholecystectomy: No Hx Genitourinary Surgery: No Hx Section: No Hx Orthopedic Surgery: Yes (knees 2011) Other Surgical History: Tonsilectomy,hernia repair Anesthesia Reaction: No - PPD History Previous Implant?: Yes Documented Results: Negative w/proof Implanted On Prior R Admission?: Yes Date: 01/21/17 Results: neg PPD to be Administered?: Yes - Smoking Cessation Smoking history: Former smoker Have you smoked in the past 12 months: Yes Aproximately how many cigarettes per day: 40 Cigars Per Day: 0 Hx Chewing Tobacco Use: No Initiated information on smoking cessation: Yes 'Breaking Loose' booklet given: 08/21/18 - Substances abused Heroin Substance route: Inhalation Frequency: Daily Amount used: 6 bags Age of first use: 58 Date of last use: 08/21/18 Alcohol Substance route: Oral Frequency: Daily Amount used: 2 pt. helenedka Age of first use: 15 Date of last use: 08/21/18 Family Disease History - Family Disease History Family Disease History: Heart Disease: Mother, CA: Father Admission Physical Exam [facility] - Vital Signs Vital Signs: Vital Signs - 24 hr 08/21/18 14:49 Temperature 98 F Pulse Rate 80 Respiratory 18 Rate Blood Pressure 135/88 - Physical General Appearance: Yes: Mild Distress HEENTM: Yes: EOMI, Hearing grossly Normal, Normocephalic, Normal Voice, LAMBERTO, Other (poor dentition) Respiratory: Yes: Decreased Breath Sounds, Wheezing Neck: Yes: No masses,lesions,Nodules, Supple Breast: Yes: Breast Exam Deferred Cardiology: Yes: Regular Rhythm, Regular Rate, S1, S2 Abdominal: Yes: Normal Bowel Sounds, Non Tender, Soft Genitourinary: Yes: Frequency, Hesitency Back: Yes: Normal Inspection Musculoskeletal: Yes: full range of Motion, Muscle Pain, Muscle weakness Extremities: Yes: Normal Inspection, Non-Tender Neurological: Yes: lifestyle director II-XII NML intact, Fully Oriented, Alert, Normal Mood/ Affect, Normal Response Integumentary: Yes: Warm Lymphatic: Yes: Within Normal Limits Cleared for Admission [facility] - Detox or Rehab [facility] Level of Care: Medically Managed Detox Regimen/Protocol: Methadone/Librium Breathalyzer - Breathalyzer Breathalyzer: 0 Urine Drug Screen - Test Device Lot number: [id number] Expiration date: 04/16/20 - Control Is test valid?: Yes - Results Drug screen NEGATIVE: No Urine drug screen results: THC-Marijuana, MOP-Opiates, BUP-Suboxone Inpatient Rehab Admission - Rehab Decision to Admit Inpatient rehab admission?: No - Initial Determination Are CD services needed?: Yes Free of communicable disease: Yes Not in need of hospitalization: Yes
[2018-08-21] MEDS ORDERED: ACETAMINOPHEN 325 MG TABLET (FP) PO PRN (16:02)
[2018-08-21] MEDS ORDERED: MENTHOL/PHENOL 1 EACH UD MM PRN (16:02)
[2018-08-21] MEDS ORDERED: MAG HYDROX/AL HYDROX/SIMETH 30 ML UNIT-DOSE CUP PO PRN (16:02)
[2018-08-21] MEDS ORDERED: IBUPROFEN 400 MG TABLET (FP) PO PRN (16:02)
[2018-08-21] MEDS ORDERED: clonazePAM 0.5 MG TABLET PO PRN (16:02)
[2018-08-21] MEDS ORDERED: chlordiazePOXIDE HCL 10 MG CAPSULE PO PRN (16:02)
[2018-08-21] MEDS ORDERED: BISMUTH SUBSALICYLATE 524 MG/30 ML UD PO PRN (16:02)
[2018-08-21] MEDS ORDERED: MELATONIN 5 MG TABLETS PO PRN (16:02)
[2018-08-21] MEDS ORDERED: MAGNESIUM CITRATE 300 ML BOTTLE PO PRN (16:02)
[2018-08-21] MEDS ORDERED: hydrOXYzine PAMOATE 25 MG CAPSULE (FP) PO PRN (16:02)
[2018-08-21] MEDS ORDERED: METHOCARBAMOL 500 MG TABLET PO PRN (16:02)
[2018-08-21] MEDS ORDERED: cloNIDine HCL 0.1 MG TABLET PO PRN (16:02)
[2018-08-21] MEDS ORDERED: MAGNESIUM HYDROX 2400MG/30ML ORAL SUSPENSION 30 ML CUP PO PRN (16:02)
[2018-08-21] MEDS ORDERED: ONDANSETRON *ODT* 4 MG TABLET SL PRN (16:02)
[2018-08-21] MEDS ORDERED: guaiFENesin 200 MG/10 ML 10 ML UNIT-DOSE CUPS PO PRN (16:10)
[2018-08-21] MEDS ORDERED: METHADONE HCL 10 MG TABLET (FOR DETOX USE ONLY) PO ONE ×2 (16:45→23:00)
[2018-08-21] MEDS ORDERED: chlordiazePOXIDE HCL 25 MG CAPSULE PO ONE (16:45)
[2018-08-21] MEDS: NICOTINE 7 MG/24 HOURS TOPICAL PATCH TD SCH (17:23)
[2018-08-21] MEDS: NICOTINE POLACRILEX 2 MG GUM BUC PRN (19:07)
[2018-08-21] MEDS: chlordiazePOXIDE HCL 25 MG CAPSULE PO SCH (22:39)
[2018-08-21] MEDS: THIAMINE HCL 100 MG TABLET (FP) PO SCH (22:39)
[2018-08-22] MEDS: chlordiazePOXIDE HCL 25 MG CAPSULE PO SCH ×2 (05:52→12:42)
[2018-08-22] MEDS: NICOTINE POLACRILEX 2 MG GUM BUC PRN ×2 (05:53→10:23)
[2018-08-22] MEDS: ALBUTEROL SO4 2.5/IPRATROPIUM 0.5 INH SOL 3 ML VIAL.NEB. NEB SCH ×4 (07:34→23:30)
[2018-08-22 09:53] LABS: HEMATOCRIT 45.5 % (35.4-49); HEMOGLOBIN 15.4 GM/dL (11.7-16.9); MCH 31.1 pg (25.7-33.7); MEAN CELL VOLUME 91.6 fl (80-96); MEAN PLT VOLUME 11.7 fl (7.5-11.1); PLATELET COUNT 165 K/MM3 (134-434); RBC 4.96 M/mm3 (4.00-5.60); RDW 14.2 % (11.9-15.9); WHITE BLOOD COUNT 10.3 K/mm3 (4.0-10.0)
[2018-08-22 09:55] LABS: ALBUMIN 3.4 g/dl (3.4-5.0); ALK PHOS 122 U/L (45-117); ANION GAP 9 MMOL/L (8-16); BILIRUBIN,TOTAL 0.8 mg/dL (0.2-1); BLOOD UREA NITROGEN 16 mg/dL (7-18); CALCIUM 8.6 mg/dL (8.5-10.1); CHLORIDE 101 mmol/L (98-107); CO2 28 mmol/L (21-32); CREATININE 1.2 mg/dL (0.55-1.3); GLUCOSE,RANDOM 128 mg/dL (74-106); POTASSIUM 3.6 mmol/L (3.5-5.1); SGOT/AST 52 U/L (15-37); SGPT/ALT 76 U/L (13-61); SODIUM 138 mmol/L (136-145)
[2018-08-22] MEDS ORDERED: PRENATAL VITAMINS W/ FOLIC ACID TABLET (FP) PO SCH (10:00)
[2018-08-22] MEDS ORDERED: METHADONE HCL 5 MG TABLET (FOR DETOX USE ONLY) PO ONE (10:00)
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
[2018-08-22] MEDS: NICOTINE 7 MG/24 HOURS TOPICAL PATCH TD SCH (10:23)
--- NOTE | 2018-08-22 13:45 | PN ---
S CIWA - CIWA Score Nausea/Vomitin-Mild Nausea/No Vomiting Muscle Tremors: 4-Moderate,w/Arms Extend Anxiety: 4-Mod. Anxious/Guarded Agitation: 1-Slight > Activity Paroxysmal Sweats: 3 Orientation: 0-Oriented Tacttile Disturbances: 0-None Auditory Disturbances: 0-None Visual Disturbances: 0-None Headache: 0-None Present CIWA-Ar Total Score: 13 B[facility] COWS - Scale Resting Pulse: 4= [place] > 121 Sweatin= Chills/Flushing Restless Observation: 1= Difficult to Sit Still Pupil Size: 0= Normal to Room Light Bone or Joint Aches: 2= Severe Diffuse Aches Runny Nose/ Eye Tearin= Runny Nose/Eyes GI Upset > 30mins: 1= Stomach Cramp Tremor Observation of Outstretched Hands: 2= Slight Tremor Visible Yawning Observation: 0= None Anxiety or Irritability: 2=Irritable/Anxious Goose Flesh Skin: 0=Smooth Skin COWS Score: 15 BHS Progress Note (SOAP) Subjective: Sweating, anxious, chills; patient later complained of his heart pounding in his chest. Upon further evaluation, patient reported h/o A. Fib, HTN and COPD and that he takes cardizem 120mg PO q12hr and inderal 80mg PO daily at home and that he last took it yesterday. Patient seen holding his chest intermittently. Objective: 08/22/18 13:40 Last Vital Signs Temp Pulse Resp BP Pulse Ox 96.8 F L 83 18 129/64 08/22/18 09:22 08/22/18 09:22 08/22/18 09:22 08/22/18 09:22 PE: Resp: lungs clear with scattered wheezing throughout Chest: patient seen holding his hand to his chest intermittently CV: s1s2+, apical rate 128 bpm, irregular irregular Skin: warm to touch, turgor good Neuro: steady gait EKG: A. Fib, rate 164bpm with rapid ventricular response, ST/T wave abnormality , QTc 459 Laboratory Tests 08/22/18 08/22/18 08/22/18 07:50 07:50 07:50 WBC 10.3 H RBC 4.96 Hgb 15.4 Hct 45.5 MCV 91.6 MCH 31.1 MCHC 34.0 RDW 14.2 Plt Count 165 MPV 11.7 H Sodium 138 Potassium 3.6 Chloride 101 Carbon Dioxide 28 Anion Gap 9 BUN 16 Creatinine 1.2 Creat Clearance w eGFR 60.58 Random Glucose 128 H Calcium 8.6 Total Bilirubin 0.8 AST 52 H ALT 76 H Alkaline Phosphatase 122 H Total Protein 7.0 Albumin 3.4 RPR Titer Nonreactive Labs reviewed: serum glucose 128 Assessment: 08/22/18 13:45 Withdrawal symptoms Noted with unstable A. Fib; History of A. Fib, COPD, HTN Plan: Continue detox Encouraged PO water hydration A. Fib, unstable:cardizem xl 120mg PO x 1 dose, 2 L O2 via NC; can resume cardizem 120mg XL PO q12hr COPD with wheezing: continue nebulizer treatment prn HTN: stable, can resume inderal 80mg PO daily Transfer patient to ER STAT Via EMS for unstable A. Fib Verbal report given to Dr. Webber at [facility] ER, ext [phone]
[2018-08-22 15:40] VITALS: BP 129/64; PULSE 83; TEMP 96.8
[2018-08-22] MEDS ORDERED: chlordiazePOXIDE 5 MG CAPSULE PO SCH (21:00)
[2018-08-22] MEDS ORDERED: QUEtiapine FUMARATE 100 MG TABLET (FP) PO SCH ×2 (22:00)
[2018-08-22] MEDS: THIAMINE HCL 100 MG TABLET (FP) PO SCH (23:32)
[2018-08-23] MEDS ORDERED: METHADONE HCL 10 MG TABLET (FOR DETOX USE ONLY) PO ONE (10:00)
--- NOTE | 2018-08-23 15:38 | EKG ---
Test Reason : Blood Pressure : / mmHG Vent. Rate : 164 BPM Atrial Rate : 163 BPM P-R Int : 000 ms QRS Dur : 088 ms QT Int : 278 ms P-R-T Axes : 000 007 072 degrees QTc Int : 459 ms ATRIAL FIBRILLATION WITH RAPID VENTRICULAR RESPONSE INCOMPLETE RIGHT BUNDLE BRANCH BLOCK ABNORMAL ECG WHEN COMPARED WITH ECG OF 19-JAN-2017 18:21, ATRIAL FIBRILLATION HAS REPLACED SINUS RHYTHM VENT. RATE HAS INCREASED BY 84 BPM Confirmed by DARIO MAYER, STANLEY ([id number]) on 08/23/2018 3:38:18 PM Referred By: Confirmed By:STANLEY BISHOP MD
[2018-08-23] MEDS ORDERED: chlordiazePOXIDE HCL 10 MG CAPSULE PO PRN (21:00)
[2018-08-23] MEDS ORDERED: chlordiazePOXIDE HCL 10 MG CAPSULE PO SCH (21:00)
[2018-08-24] MEDS ORDERED: METHADONE HCL 5 MG TABLET (FOR DETOX USE ONLY) PO ONE (06:00)
== END 2018-08-22 23:51 | disposition short-term general hospital (02) | DRG 897 ==
LOC: YASAS 14:37 → Y6N 16:26
PROVIDERS: ADMIT Surgery; ATTEND Surgery
PROC: HZ2ZZZZ Detoxification Services for Substance Abuse Treatment (ICD-10-PCS; principal; 2018-08-21)
DX: F11.23 Opioid dependence with withdrawal (principal); F19.282 Other psychoactive substance dependence with psychoactive substance-induced sleep disorder; F10.230 Alcohol dependence with withdrawal, uncomplicated; F17.210 Nicotine dependence, cigarettes, uncomplicated; F19.24 Other psychoactive substance dependence with psychoactive substance-induced mood disorder; F31.9 Bipolar disorder, unspecified; I48.91 Unspecified atrial fibrillation; Z79.01 Long term (current) use of anticoagulants; I10 Essential (primary) hypertension; J45.30 Mild persistent asthma, uncomplicated; J43.9 Emphysema, unspecified; B18.2 Chronic viral hepatitis C; H61.23 Impacted cerumen, bilateral; Z91.5 Personal history of self-harm; Z88.2 Allergy status to sulfonamides
CPT/HCPCS: 36415; 80053; 85027; 86593; 93005; 93010; 94640; J0735

== ENCOUNTER 2018-08-22 14:15 | Inpatient (IN) | payer OTHER ==
[2018-08-22] MEDS ORDERED: methylPREDNISolone NA SUCC 125 MG/2 ML VIAL IVPUSH ONE (14:36)
[2018-08-22] MEDS ORDERED: dilTIAZem HCL 50 MG/10 ML - 10 ML VIAL IVPUSH ONE (14:36)
[2018-08-22] MEDS ORDERED: IPRATROPIUM BR 0.02% 0.5 MG/2.5 ML VIAL.NEB. NEB PRN (14:36)
[2018-08-22] MEDS ORDERED: methylPREDNISolone NA SUCC 125 MG/2 ML VIAL ONE (14:44)
[2018-08-22] MEDS ORDERED: dilTIAZem HCL 125 MG/25 ML - 25 ML VIAL ONE (14:44)
[2018-08-22] MEDS ORDERED: IPRATROPIUM BR 0.02% 0.5 MG/2.5 ML VIAL.NEB. NEB ONE ×2 (15:08→15:12)
[2018-08-22] MEDS: IPRATROPIUM BR 0.02% 0.5 MG/2.5 ML VIAL.NEB. NEB SCH ×5 (15:11→16:09)
[2018-08-22 15:12] LABS: BASO % 1.2 % (0-2.0); EOS % 4.1 % (0-4.5); HEMATOCRIT 44.6 % (35.4-49); HEMOGLOBIN 14.7 GM/dL (11.7-16.9); LYMPH % 18.1 % (8-40); MCHC 32.9 g/dl (32.0-35.9); MEAN CELL VOLUME 91.1 fl (80-96); MEAN PLT VOLUME 10.5 fl (7.5-11.1); MONO % 12.9 % (3.8-10.2); NEUT % 63.7 % (42.8-82.8); PLATELET COUNT 134 K/MM3 (134-434); RBC 4.89 M/mm3 (4.00-5.60)
[2018-08-22 15:33] LABS: ALBUMIN 2.8 g/dl (3.4-5.0); ALK PHOS 108 U/L (45-117); BILIRUBIN,TOTAL 0.4 mg/dL (0.2-1); BLOOD UREA NITROGEN 16 mg/dL (7-18); CALCIUM 8.1 mg/dL (8.5-10.1); CHLORIDE 108 mmol/L (98-107); CO2 27 mmol/L (21-32); CREATININE 0.9 mg/dL (0.55-1.3); GLUCOSE,RANDOM 107 mg/dL (74-106); MAGNESIUM 2.3 mg/dL (1.8-2.4); PHOSPHOROUS 3.3 mg/dL (2.5-4.9); POTASSIUM 3.8 mmol/L (3.5-5.1); SGOT/AST 47 U/L (15-37); SGPT/ALT 67 U/L (13-61); SODIUM 142 mmol/L (136-145); TOT PROT 6.1 g/dl (6.4-8.2)
[2018-08-22 15:34] LABS: ANION GAP 6 MMOL/L (8-16)
--- NOTE | 2018-08-22 15:45 | PDOC ---
History of Present Illness - General Chief Complaint: Irregular Heart Beat Stated Complaint: PALPITATIONS Time Seen by Provider: 08/22/18 14:22 - History of Present Illness Initial Comments: Monica Sousa is a 68yo man with a PMH of substance abuse (alcohol, heroin), COPD, CHF, and paroxysmal a-fib who presents from [facility] with a HR in the 150's today. Mr Sousa states that he has been on diltiazem 120mg BID and propranolol 80mg daily for many years, and as long as he is taking his medications he has no problems. At detox yesterday and today, his medications were not on record and were not given. He states that he took both medications yesterday morning, but he missed the evening diltiazem and both meds this morning. Mr Sousa says that he saw cardiology in the past, and he is not on a blood thinner because his a-fib "doesn't happen that much." He reports compliance with his cardiac meds. Today, Mr Sousa states that he has been feeling SOB and wheezing, and he also notes lightheadedness. He has had similar symptoms with the a-fib in the past, but he feels that the SOB is due to COPD. He says that he might need steroids as he has needed them in the past. Past History - Past Medical History Allergies/Adverse Reactions: Allergies Allergy/AdvReac Type Severity Reaction Status Date / Time Sulfa (Sulfonamide Allergy Severe Hives Verified 08/22/18 14:20 Antibiotics) Home Medications: Ambulatory Orders Quetiapine Fumarate [Seroquel -] 200 mg PO HS 01/19/17 Propranolol HCl [Inderal Xl] 80 mg PO DAILY #30 mg 01/24/17 Diltiazem Cd [Cardizem Cd -] 120 mg PO BID 08/22/18 Anemia: No Asthma: Yes Cancer: No Cardiac Disorders: No CVA: No COPD: Yes CHF: No Dementia: No Diabetes: No GI Disorders: No Disorders: No HTN: Yes Hypercholesterolemia: No Liver Disease: No Seizures: Yes (x 1 year) Thyroid Disease: No - Surgical History Abdominal Surgery: No Appendectomy: No Cardiac Surgery: No Cholecystectomy: No Lung Surgery: No Neurologic Surgery: Yes (spinal lower 1997 2006 and 2014 ) Orthopedic Surgery: Yes (knees 2011) - Suicide/Smoking/Psychosocial Hx Smoking History: Former smoker Have you smoked in the past 12 months: Yes Number of Cigarettes Smoked Daily: 40 Cigars Per Day: 0 Information on smoking cessation initiated: No 'Breaking Loose' booklet given: 08/21/18 Hx Alcohol Use: Yes Drug/Substance Use Hx: Yes Substance Use Type: None, Alcohol, Heroin Hx Substance Use Treatment: Yes (2009 [facility]) Review of Systems - Review of Systems Comments:: General: No fevers, no chills, no weight or appetite change, no malaise HEENT: No changes in vision, no changes in hearing, no congestion, no sore throat CV: No chest pain, no palpitations, no LE edema. +lightheaded Pulm: +SOB, +wheezing. No cough. GI: No nausea or vomiting, no change in bowel habits, no melena : No frequency, no urgency, no dysuria Musc: No back pain, no joint swelling, no recent injury Skin: No rash, no lesions, no erythema Endo: No excessive thirst, no heat/cold intolerance Heme: No unusual bruising or bleeding, no swollen glands Neuro: No syncope, no numbness/tingling, no focal weakness Vasc: No claudication Psych: No recent change in mood, no SI or HI *Physical Exam - Vital Signs Last Vital Signs Temp Pulse Resp BP Pulse Ox 98 F 58 L 18 114/96 97 08/22/18 14:17 08/22/18 14:17 08/22/18 14:17 08/22/18 14:17 08/22/18 14:17 - Physical Exam Comments: General: Comfortable, no acute distress HEENT: PERRL, EOMI, MMM, voice normal Cards: Irregularly irregular, tachy no murmur appreciated Pulm: Comfortable on room air. Diffuse wheezing bilaterally Abd: Soft, nontender, nondistended Ext: Atraumatic. No LE edema. ROM intact. Vasc: Extremities WWP. Skin: Normal color, no rashes or lesions Neuro: A&Ox3, CN grossly intact, normal speech, motor/sensory grossly intact and symmetric Psych: Mood appropriate to situation ED Treatment Course - LABORATORY CBC & Chemistry Diagram: 08/22/18 15:05 08/22/18 15:05 - Medications Given in the ED: ED Medications Discontinued Medications Generic Name Dose Route Start Last Admin Trade Name Freq PRN Reason Stop Dose Admin Diltiazem HCl 10 mg 08/22/18 14:36 08/22/18 14:56 Cardizem Injection - IVPUSH 08/22/18 14:37 10 mg ONCE ONE Administration Methylprednisolone Sodium Succinate 125 mg 08/22/18 14:36 08/22/18 14:56 Solu-Medrol - IVPUSH 08/22/18 14:37 125 mg ONCE ONE Administration Medical Decision Making - Medical Decision Making 08/22/18 15:03 Monica Sousa is a 68yo man with a PMH of alcohol and opiate abuse, COPD, CHF, and paroxysmal a-fib who presents from [facility] in [facility] with RVR after being off his meds since yesterday. He missed his normal doses of 120mg diltiazem last night and this morning as well as the morning 80mg propranolol. He reports SOB and wheezing c/w COPD but denies any other symptoms currently - RVR most likely due to missing medications. May be exacerbated by opiate/ alcohol detox - Diffuse wheezing, most likely COPD exacerbation, may also be due to a-fib, pulm edema. Unlikely pneumonia or any other infection as there are no focal symptoms - Given 120mg diltiazem PO prior to transfer from detox to ED. Initially NSR w/ HR in 60's, now in a-fib w/ RVR at HR ~150 during exam. Will give additional 10mg IV diltiazem - SBP in high 90's. 1L IVF to support BP, will reassess - Atrovent for wheezing. Methylprednisolone for likely COPD exacerbation - CBC, CMP, CXR 08/22/18 15:49 - BP improved to SBP 130's following fluid bolus. - HR continues to be in 130-140's. 5mg IV metoprolol ordered as pt missed home propranolol today. Will also give normal dose of PO propranolol. - Reassess 08/22/18 18:15 - HR still in 120's after 2nd dose of 5mg IV metoprolol and 25mg PO metoprolol - Spoke to Dr Wiggins. Recommending diltiazem drip at this point. Also recommends anticoagulation given CHADS-VASc of 2 - Dilt drip and lovenox 80mg BID ordered - Admit for monitoring, HR control 04/07/19 19:07 - Sign out given to Dr Scott. Will evaluate for admission. Discussed with Dr Garland. Norma Webber PGY1 *DC/Admit/Observation/Transfer Diagnosis at time of Disposition: Atrial fibrillation with RVR - Discharge Dispostion Condition at time of disposition: Stable Decision to Admit order: Yes - Referrals Referrals: Samy Farris MD [Primary Care Provider] - - Patient Instructions Printed Discharge Instructions: DI for Arrhythmias Additional Instructions: Discharge Instructions: You were seen in the emergency department for atrial fibrillation with rapid heart rate (a-fib with RVR). You were given several medications to lower your heart rate. - Post Discharge Activity
[2018-08-22] MEDS ORDERED: METOPROLOL TARTRATE 5 MG/5 ML VIAL IVPUSH ONE ×2 (15:48→17:01)
--- NOTE | 2018-08-22 15:57 | PDOC ---
Attending Attestation - Resident Resident Name: AkbarNorma - ED Attending Attestation I have performed the following: I have examined & evaluated the patient, The case was reviewed & discussed with the resident, I agree w/resident's findings & plan, Exceptions are as noted - HPI HPI: 08/22/18 15:54 The patientis a 68 YOM with a PMH of COPD, CHF, and pAfib, currently at [facility] for EtOH and heroine detox, sent in for tachycardia. Pt states that he normally takes dilt and propranolol for rate control but was not given it at [facility] during his admission. Pt was given one dose of dilt 120mg PO prior to arrival to ED. The patient denies chest pain, shortness of breath, headache and dizziness. Denies fever, chills, nausea, vomit, diarrhea and constipation. Denies dysuria, frequency, urgency and hematuria. Allergies: NKA Past surgical history: None reported. Social history: No reported alcohol, drug or cigarette use. - Physicial Exam PE: 08/22/18 15:56 GENERAL: Awake, alert, and fully oriented, in no acute distress. HEAD: No signs of trauma EYES: PERRLA, EOMI, sclera anicteric, conjunctiva clear ENT: Auricles normal inspection, hearing grossly normal, nares patent, oropharynx clear without exudates. Moist mucosa NECK: Nontender, no stepoffs, Normal ROM, supple, no lymphadenopathy, JVD, or masses LUNGS: Breath sounds equal, clear to auscultation bilaterally. No wheezes, and no crackles HEART: tachycardic, normal S1 and S2, no murmurs, rubs or gallops ABDOMEN: Soft, nontender, normoactive bowel sounds. No guarding, no rebound. No masses EXTREMITIES: Normal range of motion, no edema. No clubbing or cyanosis. No cords, erythema, or tenderness NEUROLOGICAL: Cranial nerves II through XII intact. 5/5 strength and sensation in all extremities, Normal speech, normal gait, normal cerebellar function SKIN: Warm, Dry, normal turgor, no rashes or lesions noted. - Medical Decision Making 08/22/18 16:04 68 M presenting with afib with RVR, likely 2/2 medication noncompliance. Pt with no symptoms at this time. Vitals otherwise stable. - Labs - Home dose dilt given - Will give home dose propranolol - Reassess 08/22/18 17:36 Pt given home dose propranolol, in addition to metoprolol 5mg IV x2 and 25mg PO Pt with persistent tachycardia Will c/s cards, consider dilt gtt 08/22/18 18:25 Dr. Wiggins consulted, agrees with dilt gtt, recommends AC as well. Will start lovenox
[2018-08-22] MEDS ORDERED: METOPROLOL TARTRATE 5 MG/5 ML VIAL ONE ×2 (16:03→17:10)
[2018-08-22] MEDS ORDERED: METOPROLOL TARTRATE 25 MG TABLET (FP) PO ONE (17:01)
[2018-08-22] MEDS ORDERED: METOPROLOL TARTRATE 25 MG TABLET (FP) ONE (17:10)
[2018-08-22] MEDS ORDERED: chlordiazePOXIDE HCL 25 MG CAPSULE PO ONE (17:29)
[2018-08-22] MEDS ORDERED: ASPIRIN 81 MG CHEWABLE TABLETS PO ONE (17:35)
[2018-08-22] MEDS ORDERED: chlordiazePOXIDE HCL 25 MG CAPSULE ONE (17:45)
[2018-08-22] MEDS ORDERED: ASPIRIN 81 MG CHEWABLE TABLETS ONE (17:45)
--- NOTE | 2018-08-22 17:51 | EKG ---
Test Reason : Blood Pressure : / mmHG Vent. Rate : 143 BPM Atrial Rate : 113 BPM P-R Int : 000 ms QRS Dur : 086 ms QT Int : 306 ms P-R-T Axes : 000 030 050 degrees QTc Int : 472 ms ATRIAL FIBRILLATION WITH RAPID VENTRICULAR RESPONSE ABNORMAL ECG WHEN COMPARED WITH ECG OF 19-JAN-2017 18:21, ATRIAL FIBRILLATION HAS REPLACED SINUS RHYTHM VENT. RATE HAS INCREASED BY [address] NOW DEPRESSED IN ANTERIOR LEADS T WAVE INVERSION NOW EVIDENT IN ANTERIOR LEADS Confirmed by JACKSON FITCH MD ([id number]) on 08/22/2018 5:50:55 PM Referred By: Confirmed By:JACKSON FITCH MD
[2018-08-22] MEDS ORDERED: DILTIAZEM INJECTION 125 MG in SODIUM CHLORIDE 100 ML IVPB SCH (18:00)
[2018-08-22] MEDS ORDERED: ENOXAPARIN NA (PORCINE) 80 MG/0.8 ML DISP.SYRIN SQ ONE ×2 (18:06→18:22)
[2018-08-22] MEDS: ENOXAPARIN NA (PORCINE) 80 MG/0.8 ML DISP.SYRIN SQ SCH (18:23)
--- NOTE | 2018-08-22 20:04 | HP ---
CHIEF COMPLAINT: " I think it's my A.Fib," Shortness of breath on exertion PCP: Dr. Farris HISTORY OF PRESENT ILLNESS: Pt. is a 68 y.o. M presenting from [facility] for shortness of breath on exertion and found to be in A.Fib with RVR. Pt. states that he last took his home medications the morning of 08/21/18 and did not receive any medications at [facility] because his meds could not be reconciled. at [facility] EKG showed Afib with RVR and Pt. was transferred here for treatment. Pt. received Diltizem 120mg PO before arrival to ED. Pt. states that per his last visit with a phyisician who performed his echo 1 year ago, " he did not need any anticoagulation." Pt. does not regularly follow with a seasonal recruiter. Pt. endorses a recent COPD exacerbation 1 month ago. Pt. states that he uses his Nebulizer Q4H PRN with Albuterol and has been using it almost everyday since last hospital discharge. Pt. states that for the last month he cannot lie flat at night to sleep because sometimes he feels he cannot breathe. Pt. endorses shortness of breath on exertion, headache, cough with white bello sputum production, polyuria, diarrhea before detox (none currently), anxiety, sweating, lightheadedness, mild dizziness, generalized aches and pains to muscle and joints, seeing strange things but not quite hallucinations. Pt. denies any chest pain, abdominal pain, lower extremity swelling, changes in vision, changes in balance, constipation, blood in stool or urine. Pt. denies any homicidal or suicidal ideations. ER course was notable for: (1)Diltiazem 10mg IVP, Lopressor 5 mg IVP x 2, Propanolol 80 mg PO, Metoprolol 25mg PO (2)Consult w/ Dr. Wiggins: start Cardizem drip and Lovenox 80mg BID (3)EKG, Solumedrol, atrovent, labs trops Recent Travel: No PAST MEDICAL HISTORY: Polysubstance abuse (Heroin and EtOH), Hep C(untreated), Asthma/COPD, Seizure( 1 occurence 3 years ago after suddenly stopping klonopin) , and CHF? PAST SURGICAL HISTORY: Spinal Surgery(1996, 2006 , and 2014: one was for MRSA abcess), Tonsillectomy, Hernia Repair, knee surgery Social History: Smoking: Quit 1 month ago, was 2 PPD Alcohol: 2 Pints of Vodka daily Drugs: 6 bags of heroin, Marijuana Family History: Mother-Heart Disease; Father-Cancer, -Substance abuse Allergies Sulfa (Sulfonamide Antibiotics) Allergy (Severe, Verified 08/22/18 14:20) Hives HOME MEDICATIONS: Home Medications Medication Instructions Recorded Quetiapine Fumarate [Seroquel -] 200 mg PO HS 01/19/17 Propranolol HCl [Inderal Xl] 80 mg PO DAILY #30 mg 01/24/17 Diltiazem Cd [Cardizem Cd -] 120 mg PO BID 08/22/18 REVIEW OF SYSTEMS As per HPI PHYSICAL EXAMINATION Vital Signs - 24 hr 08/22/18 08/22/18 08/22/18 14:17 16:07 17:15 Temperature 98 F Pulse Rate 58 L Pulse Rate [ Apical] Respiratory 18 Rate Blood Pressure 114/96 116/84 100/80 Blood Pressure [Right Arm] O2 Sat by Pulse 97 Oximetry (%) 08/22/18 08/22/18 17:17 19:42 Temperature Pulse Rate Pulse Rate [ 117 H 110 H Apical] Respiratory 18 Rate Blood Pressure Blood Pressure 100/80 118/89 [Right Arm] O2 Sat by Pulse 96 Oximetry (%) GENERAL: Awake, alert, and fully oriented, in no acute distress. HEAD: Normal with no signs of trauma. EYES: Pupils equal, round and reactive to light, extraocular movements intact, sclera anicteric, conjunctiva clear. No lid lag. EARS, NOSE, THROAT: Ears normal, nares patent, oropharynx clear without exudates. Moist mucous membranes. NECK: Normal range of motion, supple without lymphadenopathy, JVD, or masses. LUNGS: Breath sounds equal, clear to auscultation bilaterally. No wheezes, and no crackles. No accessory muscle use. HEART: Regular rate and rhythm, normal S1 and S2 without murmur, rub or gallop. ABDOMEN: Soft, nontender, not distended, normoactive bowel sounds, no guarding, no rebound, no masses. No hepatomegaly or splenomegaly. MUSCULOSKELETAL: Normal range of motion at all joints. No bony deformities or tenderness. No CVA tenderness. UPPER EXTREMITIES: 2+ pulses, warm, well-perfused. No cyanosis. No clubbing. No peripheral edema. LOWER EXTREMITIES: 2+ pulses, warm, well-perfused. No calf tenderness. No peripheral edema. NEUROLOGICAL: Cranial nerves II-XII intact. Normal speech. Normal gait. PSYCHIATRIC: Cooperative. Good eye contact. Appropriate mood and affect. SKIN: Warm, dry, normal turgor, no rashes or lesions noted, normal capillary refill. Laboratory Results - last 24 hr 08/22/18 08/22/18 15:05 15:05 WBC 11.0 H RBC 4.89 Hgb 14.7 Hct 44.6 MCV 91.1 MCH 30.0 MCHC 32.9 RDW 14.0 Plt Count 134 MPV 10.5 D Absolute Neuts (auto) 7.0 Neutrophils % 63.7 Lymphocytes % 18.1 Monocytes % 12.9 H Eosinophils % 4.1 Basophils % 1.2 Nucleated RBC % 0 Sodium 142 Potassium 3.8 Chloride 108 H Carbon Dioxide 27 Anion Gap 6 L BUN 16 Creatinine 0.9 Creat Clearance w eGFR 84.43 Random Glucose 107 H Calcium 8.1 L Phosphorus 3.3 Magnesium 2.3 Total Bilirubin 0.4 AST 47 H ALT 67 H Alkaline Phosphatase 108 Creatine Kinase 26 Troponin I 0.02 Total Protein 6.1 L Albumin 2.8 L ASSESSMENT/PLAN: Pt. is a 68 y.o. M w/ PMHx. of Polysubstance abuse (Heroin and EtOH), Hep C( untreated), Asthma/COPD, and Seizure episode x1 presents from [facility] for shortness of breath on exertion and found to be in A.Fib with RVR. #Paroxysmal A.Fib w. RVR c/w Cardizem Drip Hold home Diltiazem and Propanolol, will consider restarting vs. substituting BB pending UTox, and cardiology recommendations. Given Hx. of alcohol abuse and untreated Hep C would consider switching to nadolol as prophylaxis against esophageal varices. f/u Echo c/w AC as CHADVASC score is 2 #Dyspnea on Exertion Given Solumedrol 125mg in ED c/w Solumedrol 40mg Q8H Pulmonology Consult ( Dr. Ferrari) appreciated CXR: showed mild blunting of the CDA #Polysubstance Abuse CIWA score: 13 (was 14 on admission to [facility]) c/w Librium Protocol c/w Nicotine gum c/w Quetiapine 100mg as recommended by Psych at [facility]. Pt. was on 200mg Seroquel in past but had adverse psych reactions including hallucinations and was therefore discontinued. #FEN encourage PO intake monitor electrolytes and replete as needed Na restricted diet #DVT Ppx. c/w Lovenox 80mg BID Visit type - Emergency Visit Emergency Visit: Yes ED Registration Date: 08/22/18 Care time: The patient presented to the Emergency Department on the above date and was hospitalized for further evaluation of their emergent condition. - New Patient This patient is new to me today: Yes Date on this admission: 08/22/18 - Critical Care Critical Care patient: No
[2018-08-22] MEDS: DILTIAZEM INJECTION 125 MG in SODIUM CHLORIDE 100 ML IVPB SCH (20:08)
[2018-08-22] MEDS: NICOTINE POLACRILEX 2 MG GUM BUC PRN ×2 (20:10→22:13)
--- NOTE | 2018-08-22 20:38 | CON.CARD ---
Consult Consult Specialty:: cardiology Reason for Consultation:: AF - History of Present Illness History of Present Illness: The patientis a 68 YOM with a PMH of COPD, CHF, and pAfib, currently at [facility] for EtOH and heroine detox, sent in for tachycardia. Pt states that he normally takes dilt and propranolol for rate control but was not given it at [facility] during his admission. Pt was given one dose of dilt 120mg PO prior to arrival to ED. The patient denies chest pain, shortness of breath, headache and dizziness. Denies fever, chills, nausea, vomit, diarrhea and constipation. Denies dysuria, frequency, urgency and hematuria. Allergies: NKA Past surgical history: None reported. Social history: No reported alcohol, drug or cigarette use. - Alcohol/Substance Use Hx Alcohol Use: Yes - Smoking History Smoking history: Former smoker Have you smoked in the past 12 months: Yes Aproximately how many cigarettes per day: 40 Home Medications - Allergies Allergies/Adverse Reactions: Allergies Allergy/AdvReac Type Severity Reaction Status Date / Time Sulfa (Sulfonamide Allergy Severe Hives Verified 08/22/18 14:20 Antibiotics) - Home Medications Home Medications: Ambulatory Orders Quetiapine Fumarate [Seroquel -] 200 mg PO HS 01/19/17 Propranolol HCl [Inderal Xl] 80 mg PO DAILY #30 mg 01/24/17 Diltiazem Cd [Cardizem Cd -] 120 mg PO BID 08/22/18 Family Disease History - Family Disease History Family Disease History: Heart Disease: Mother, CA: Father Vital Signs: Vital Signs Temperature 98 F 08/22/18 14:17 Pulse Rate 136 H 08/22/18 20:08 Respiratory Rate 18 08/22/18 19:42 Blood Pressure 118/89 08/22/18 20:08 O2 Sat by Pulse Oximetry (%) 96 08/22/18 19:42 - Other Data Labs, Other Data: CBC, BMP 08/22/18 15:05 08/22/18 15:05 Troponin, BNP 08/22/18 15:05 Troponin I 0.02 Troponin, BNP 08/22/18 15:05 Troponin I 0.02 Problem List - Problems (1) Atrial fibrillation with RVR Assessment/Plan: Pt has been given PO diltiazem and propanolol, as well as metoprolol iVP and diltiazem IVP. Will start diltiazem IV drip; f/u HR and BP. ECHO for LVEF. Observe for signs of opiod, ETHO withdrawal. Pt denies cocaine use recently (wll stop beta blockers if he has been using this drug). Code(s): I48.91 - UNSPECIFIED ATRIAL FIBRILLATION (2) Substance-induced sleep disorder Code(s): F19.982 - OTH PSYCHOACTIVE SUBSTANCE USE, UNSP W SLEEP DISORDER (3) Alcohol dependence with uncomplicated withdrawal Code(s): F10.230 - ALCOHOL DEPENDENCE WITH WITHDRAWAL, UNCOMPLICATED (4) Opioid dependence with withdrawal Code(s): F11.23 - OPIOID DEPENDENCE WITH WITHDRAWAL (5) Substance induced mood disorder Code(s): F19.94 - OTH PSYCHOACTIVE SUBSTANCE USE, UNSP W MOOD DISORDER (6) COPD (chronic obstructive pulmonary disease) Code(s): J44.9 - CHRONIC OBSTRUCTIVE PULMONARY DISEASE, UNSPECIFIED Qualifiers: COPD type: emphysema Emphysema type: unspecified Qualified Code(s): J43.9 - Emphysema, unspecified (7) Hypertension Code(s): I10 - ESSENTIAL (PRIMARY) HYPERTENSION Qualifiers: Hypertension type: essential hypertension Qualified Code(s): I10 - Essential (primary) hypertension
--- NOTE | 2018-08-22 20:48 | PN ---
Teaching Attending Note Name of Resident: Heath Dias ATTENDING PHYSICIAN STATEMENT I saw and evaluated the patient. I reviewed the resident's note and discussed the case with the resident. I agree with the resident's findings and plan as documented. SUBJECTIVE: This is a 68 year old man with a history of PAF, COPD/asthma, HTN, seizures, bipolar disorder, hepatitis C, alcohol abuse, heroin abuse who was admitted to [facility] yesterday for alcohol and heroin detox, and who was sent to the ED today because of rapid atrial fibrillation. He reports that he did not get his dose of Cardizem yesterday evening. Today he had sweats, chills, and anxiety which he attributed to withdrawal, but later he developed palpitations and felt his heart pounding. His rhythm was noted to be irregular and his HR 128. EKG was done and showed atrial fib with RVR 164. He was given Cardizem CD 120 mg PO and sent to the ED. Currently he feels anxious but denies chest pain and palpitations. He feels SOB and this has been ongoing for about a month. He says he was treated at [facility] a month ago for COPD exacerbation. While there, he felt better. He was discharged with prednisone and albuterol. He did not complete the course of prednisone as instructed and SOB returned. OBJECTIVE: Vital Signs Period Temp Pulse Resp BP Sys/Torres Pulse Ox Last 24 Hr 98 F 58-136 18-18 100-118/80-96 96-97 HEART: Irregularly irregular, tachycardic, no JVD LUNGS: Bilateral expiratory wheezes ABDOMEN: Soft, non-tender, non-distended, normal BS EXTREMITIES: No edema Laboratory Tests 08/22/18 08/22/18 15:05 15:05 WBC 11.0 H RBC 4.89 Hgb 14.7 Hct 44.6 MCV 91.1 MCH 30.0 MCHC 32.9 RDW 14.0 Plt Count 134 MPV 10.5 D Absolute Neuts (auto) 7.0 Neutrophils % 63.7 Lymphocytes % 18.1 Monocytes % 12.9 H Eosinophils % 4.1 Basophils % 1.2 Nucleated RBC % 0 Sodium 142 Potassium 3.8 Chloride 108 H Carbon Dioxide 27 Anion Gap 6 L BUN 16 Creatinine 0.9 Creat Clearance w eGFR 84.43 Random Glucose 107 H Calcium 8.1 L Phosphorus 3.3 Magnesium 2.3 Total Bilirubin 0.4 AST 47 H ALT 67 H Alkaline Phosphatase 108 Creatine Kinase 26 Troponin I 0.02 Total Protein 6.1 L Albumin 2.8 L Home Medications Medication Instructions Recorded Quetiapine Fumarate [Seroquel -] 200 mg PO HS 01/19/17 Propranolol HCl [Inderal Xl] 80 mg PO DAILY #30 mg 01/24/17 Diltiazem Cd [Cardizem Cd -] 120 mg PO BID 08/22/18 ASSESSMENT AND PLAN: This is a 68 year old man with a history of PAF, COPD/asthma, HTN, seizures, bipolar disorder, hepatitis C, alcohol abuse, heroin abuse who presented to the ED from [facility] with rapid atrial fibrillation, palpitations, SOB. 1. Atrial fibrillation with RVR - Patient was given Cardizem CD 120 mg PO at [facility] followed by Cardizem 10 mg IV, Inderal 80 mg PO, Lopressor 25 mg PO and Lopressor 5 mg IV in ED without improvement - Admit to telemetry - Start Cardizem IV drip - If B-scott needed, patient denies cocaine use and no cocaine was found on urine tox at [facility] on this visit or on previous visit - CHADS2-VASc score is 2 and patient states he was not on anticoagulation because he doesn't get a fib very often - Start anticoagulation - EKG with ST depressions in anterior leads - Possibly rate related - Serial troponins - Repeat EKG in am - TSH normal - Echocardiogram - Cardiology input appreciated 2. Acute exacerbation of COPD - SoluMedrol 125 mg IV given in ED - Continue SoluMedrol - Start atrovent nebs - Pulmonary consult 3. Hepatic transaminitis, mild - Could be secondary to alcohol, hepatitis C - Will do RUQ US, check HCV Ab, and monitor LFTs 4. HTN - Cardizem IV drip being started 5. Continuous alcohol dependence - Continue Librium detox 6. Opiate dependence - Continue Methadone detox and monitor QT 7. Nicotine dependence - Start nicotine replacement - patient requesting nicotine gum 8. Bipolar disorder - Start Seroquel as was recommended at [facility] 9. Hepatitis C - Check HCV Ab
[2018-08-22] MEDS ORDERED: QUEtiapine FUMARATE 100 MG TABLET (FP) ONE ×2 (22:09→22:10)
[2018-08-22] MEDS: QUEtiapine FUMARATE 100 MG TABLET (FP) PO SCH (22:14)
[2018-08-23] MEDS ORDERED: methylPREDNISolone NA SUCC 40 MG/1 ML VIAL ONE ×2 (01:50→18:00)
[2018-08-23] MEDS: methylPREDNISolone NA SUCC 40 MG/1 ML VIAL IVPUSH SCH ×3 (01:55→18:18)
[2018-08-23] MEDS ORDERED: chlordiazePOXIDE HCL 10 MG CAPSULE PO PRN (02:10)
[2018-08-23] MEDS ORDERED: chlordiazePOXIDE 5 MG CAPSULE ONE ×3 (03:23→23:12)
[2018-08-23] MEDS: NICOTINE POLACRILEX 2 MG GUM BUC PRN ×3 (03:24→17:46)
[2018-08-23] MEDS ORDERED: chlordiazePOXIDE 5 MG CAPSULE PO ONE (03:29)
[2018-08-23 04:47] LABS: COCAINE, UR NEGATIVE ng/ml (CUTOFF=300); METHADONE, UR NEGATIVE ng/ml (CUTOFF=300); PHENCYCLIDINE,URINE NEGATIVE ng/ml (CUTOFF=25); URINE AMPHETAMINES NEGATIVE ng/ml (CUTOFF=500); URINE BARBITURATES NEGATIVE ng/ml (CUTOFF=200)
[2018-08-23 04:51] LABS: OPIATES, URI POSITIVE ng/ml (CUTOFF=300); URINE BENZODIAZEPINES POSITIVE ng/ml (CUTOFF=200)
[2018-08-23] MEDS ORDERED: cloNIDine HCL 0.1 MG TABLET PO PRN ×2 (04:56→15:19)
[2018-08-23] MEDS ORDERED: ENOXAPARIN NA (PORCINE) 80 MG/0.8 ML DISP.SYRIN SQ ONE (06:08)
[2018-08-23] MEDS: ENOXAPARIN NA (PORCINE) 80 MG/0.8 ML DISP.SYRIN SQ SCH ×2 (06:11→18:19)
[2018-08-23] MEDS ORDERED: METHADONE HCL 10 MG TABLET ONE ×2 (09:33→23:12)
[2018-08-23 09:35] LABS: HEMATOCRIT 45.2 % (35.4-49); LYMPH % 6.7 % (8-40); MCH 30.3 pg (25.7-33.7); MCHC 33.1 g/dl (32.0-35.9); MEAN CELL VOLUME 91.5 fl (80-96); MEAN PLT VOLUME 11.3 fl (7.5-11.1); MONO % 1.5 % (3.8-10.2); NEUT % 91.8 % (42.8-82.8); PLATELET COUNT 146 K/MM3 (134-434); RBC 4.94 M/mm3 (4.00-5.60); RDW 14.1 % (11.9-15.9); WHITE BLOOD COUNT 12.9 K/mm3 (4.0-10.0)
--- NOTE | 2018-08-23 09:42 | PN ---
Progress Note, Physician History of Present Illness: The patientis a 68 YOM with a PMH of COPD, CHF, and pAfib, currently at [facility] for EtOH and heroine detox, sent in for tachycardia. Pt states that he normally takes dilt and propranolol for rate control but was not given it at [facility] during his admission. Pt was given one dose of dilt 120mg PO prior to arrival to ED. The patient denies chest pain, shortness of breath, headache and dizziness. Denies fever, chills, nausea, vomit, diarrhea and constipation. Denies dysuria, frequency, urgency and hematuria. Allergies: NKA Past surgical history: None reported. Social history: No reported alcohol, drug or cigarette use. - Current Medication List Current Medications: Active Medications Chlordiazepoxide HCl (Librium -) 10 mg PO Q12H PRN PRN Reason: Signs/symptoms of Withdrawal Stop: 08/26/18 05:00 Chlordiazepoxide HCl (Librium -) 10 mg PO Q8H PRN PRN Reason: Signs/symptoms of Withdrawal Stop: 08/25/18 05:00 Chlordiazepoxide HCl (Librium -) 15 mg PO Q8H [facility] Stop: 08/24/18 21:01 Chlordiazepoxide HCl (Librium -) 10 mg PO Q8H [facility] Stop: 08/26/18 05:01 Clonidine (Catapres -) 0.1 mg PO Q6H PRN PRN Reason: Withdrawal Symptoms Stop: 08/25/18 23:59 Diltiazem HCl (Cardizem Cd -) 120 mg PO BID [facility] Last Admin: 08/23/18 08:15 Dose: 120 mg Enoxaparin Sodium (Lovenox -) 80 mg SQ Q12H [facility] Last Admin: 08/23/18 06:11 Dose: 80 mg Diltiazem HCl 125 mg/ Sodium (Chloride) 125 mls @ 10 mls/hr IVPB TITR [facility]; Protocol Last Titration: 08/23/18 08:00 Dose: 0 mg/hr, 0 mls/hr Methadone HCl (Dolophine -) 10 mg PO ONCE ONE Stop: 08/23/18 10:01 Last Admin: 08/23/18 09:41 Dose: 10 mg Methadone HCl (Dolophine -) 5 mg PO ONCE ONE Stop: 08/24/18 06:01 Methylprednisolone Sodium Succinate (Solu-Medrol -) 40 mg IVPUSH Q8H-IV [facility] Last Admin: 08/23/18 09:41 Dose: 40 mg Nicotine Polacrilex (Nicorette Gum -) 2 mg BUC Q2H PRN PRN Reason: NICOTINE REPLACEMENT RX Last Admin: 08/23/18 03:24 Dose: 2 mg Quetiapine Fumarate (Seroquel -) 100 mg PO HS [facility] Last Admin: 08/22/18 22:14 Dose: 100 mg - Objective Vital Signs: Vital Signs Temperature 98.2 F 08/23/18 06:49 Pulse Rate 79 08/23/18 07:31 Respiratory Rate 16 08/23/18 07:31 Blood Pressure 109/79 08/23/18 07:31 O2 Sat by Pulse Oximetry (%) 97 08/23/18 06:49 Eyes: Yes: WNL, Conjunctiva Clear, EOM Intact HENT: Yes: WNL, Atraumatic, Normocephalic Neck: Yes: WNL, Supple, Trachea Midline Cardiovascular: Yes: WNL, Regular Rate and Rhythm Respiratory: Yes: WNL, Regular, CTA Bilaterally Gastrointestinal: Yes: WNL, Normal Bowel Sounds Genitourinary: Yes: WNL Musculoskeletal: Yes: WNL Extremities: Yes: WNL Edema: No Integumentary: Yes: WNL Neurological: Yes: WNL, Alert, Oriented ...Motor Strength: WNL Psychiatric: Yes: WNL Labs: CBC, BMP 08/23/18 09:12 Assessment/Plan - Problems (1) Atrial fibrillation with RVR Assessment/Plan: Pt has been given PO diltiazem and propanolol, as well as metoprolol iVP and diltiazem IVP. Will start diltiazem IV drip; f/u HR and BP. ECHO for LVEF. Observe for signs of opiod, ETHO withdrawal. Pt denies cocaine use recently (wll stop beta blockers if he has been using this drug). Code(s): I48.91 - UNSPECIFIED ATRIAL FIBRILLATION (2) Substance-induced sleep disorder Code(s): F19.982 - OTH PSYCHOACTIVE SUBSTANCE USE, UNSP W SLEEP DISORDER (3) Alcohol dependence with uncomplicated withdrawal Code(s): F10.230 - ALCOHOL DEPENDENCE WITH WITHDRAWAL, UNCOMPLICATED (4) Opioid dependence with withdrawal Code(s): F11.23 - OPIOID DEPENDENCE WITH WITHDRAWAL (5) Substance induced mood disorder Code(s): F19.94 - OTH PSYCHOACTIVE SUBSTANCE USE, UNSP W MOOD DISORDER (6) COPD (chronic obstructive pulmonary disease) Code(s): J44.9 - CHRONIC OBSTRUCTIVE PULMONARY DISEASE, UNSPECIFIED Qualifiers: COPD type: emphysema Emphysema type: unspecified Qualified Code(s): J43.9 - Emphysema, unspecified (7) Hypertension Code(s): I10 - ESSENTIAL (PRIMARY) HYPERTENSION Qualifiers: Hypertension type: essential hypertension Qualified Code(s): I10 - Essential (primary) hypertension
[2018-08-23] MEDS ORDERED: METHADONE HCL 10 MG TABLET (FOR DETOX USE ONLY) PO ONE ×2 (10:00→23:00)
[2018-08-23 10:08] LABS: ALBUMIN 3.1 g/dl (3.4-5.0); ALK PHOS 101 U/L (45-117); ANION GAP 9 MMOL/L (8-16); BILIRUBIN,TOTAL 0.7 mg/dL (0.2-1); BLOOD UREA NITROGEN 17 mg/dL (7-18); CALCIUM 8.7 mg/dL (8.5-10.1); CHLORIDE 107 mmol/L (98-107); CHOLESTEROL 166 mg/dL (50-200); CO2 24 mmol/L (21-32); CREATININE 0.9 mg/dL (0.55-1.3); GLUCOSE,RANDOM 201 mg/dL (74-106); HDL CHOLESTEROL 58 mg/dL (40-60); MAGNESIUM 2.2 mg/dL (1.8-2.4); PHOSPHOROUS 2.6 mg/dL (2.5-4.9); POTASSIUM 3.9 mmol/L (3.5-5.1); SGOT/AST 41 U/L (15-37); SGPT/ALT 68 U/L (13-61); SODIUM 140 mmol/L (136-145); TOT PROT 6.8 g/dl (6.4-8.2); TRIGLYCERIDES 146 mg/dL (0-150)
[2018-08-23 11:21] LABS: ANISOCYTOSIS 0; MACROCYTOSIS 0; PLATELET ESTIMATE DECREASED; TEAR DROP CELLS 1+
--- NOTE | 2018-08-23 11:48 | PN ---
Progress Note, Physician History of Present Illness: Rate-controlled afib - Current Medication List Current Medications: Active Medications Chlordiazepoxide HCl (Librium -) 10 mg PO Q12H PRN PRN Reason: Signs/symptoms of Withdrawal Stop: 08/26/18 05:00 Chlordiazepoxide HCl (Librium -) 10 mg PO Q8H PRN PRN Reason: Signs/symptoms of Withdrawal Stop: 08/25/18 05:00 Last Admin: 08/23/18 10:37 Dose: 10 mg Chlordiazepoxide HCl (Librium -) 15 mg PO Q8H [facility] Stop: 08/24/18 21:01 Chlordiazepoxide HCl (Librium -) 10 mg PO Q8H [facility] Stop: 08/26/18 05:01 Clonidine (Catapres -) 0.1 mg PO Q6H PRN PRN Reason: Withdrawal Symptoms Stop: 08/25/18 23:59 Diltiazem HCl (Cardizem Cd -) 120 mg PO BID [facility] Last Admin: 08/23/18 08:15 Dose: 120 mg Enoxaparin Sodium (Lovenox -) 80 mg SQ Q12H [facility] Last Admin: 08/23/18 06:11 Dose: 80 mg Diltiazem HCl 125 mg/ Sodium (Chloride) 125 mls @ 10 mls/hr IVPB TITR [facility]; Protocol Last Titration: 08/23/18 08:00 Dose: 0 mg/hr, 0 mls/hr Methadone HCl (Dolophine -) 5 mg PO ONCE ONE Stop: 08/24/18 06:01 Methylprednisolone Sodium Succinate (Solu-Medrol -) 40 mg IVPUSH Q8H-IV [facility] Last Admin: 08/23/18 09:41 Dose: 40 mg Nicotine Polacrilex (Nicorette Gum -) 2 mg BUC Q2H PRN PRN Reason: NICOTINE REPLACEMENT RX Last Admin: 08/23/18 03:24 Dose: 2 mg Quetiapine Fumarate (Seroquel -) 100 mg PO HS [facility] Last Admin: 08/22/18 22:14 Dose: 100 mg - Objective Vital Signs: Vital Signs Temperature 98.2 F 08/23/18 06:49 Pulse Rate 79 08/23/18 07:31 Respiratory Rate 16 08/23/18 07:31 Blood Pressure 109/79 08/23/18 07:31 O2 Sat by Pulse Oximetry (%) 97 08/23/18 06:49 Constitutional: Yes: No Distress, Calm, Thin Neck: Yes: Supple Cardiovascular: Yes: Pulse Irregular Respiratory: Yes: Regular, CTA Bilaterally Gastrointestinal: Yes: Normal Bowel Sounds, Soft Edema: No Labs: CBC, BMP 08/23/18 09:12 08/23/18 09:21 - ....Imaging EKG: Report Reviewed (Tele: Rate-controlled afib) Assessment/Plan - Problems (1) Atrial fibrillation with RVR Assessment/Plan: Cardizem gtt->oral ECHO for LVEF. Currently on full dose Lovenox, not ideal long-term a/c candidate with ongoin chronic polysubstance abuse Observe for signs of opiod, ETOH withdrawal currently on Librium and methadone detox Pt denies cocaine use recently (wll stop beta blockers if he has been using this drug). Code(s): I48.91 - UNSPECIFIED ATRIAL FIBRILLATION (2) Substance-induced sleep disorder Code(s): F19.982 - OTH PSYCHOACTIVE SUBSTANCE USE, UNSP W SLEEP DISORDER (3) Alcohol dependence with uncomplicated withdrawal Code(s): F10.230 - ALCOHOL DEPENDENCE WITH WITHDRAWAL, UNCOMPLICATED (4) Opioid dependence with withdrawal Code(s): F11.23 - OPIOID DEPENDENCE WITH WITHDRAWAL (5) Substance induced mood disorder Code(s): F19.94 - OTH PSYCHOACTIVE SUBSTANCE USE, UNSP W MOOD DISORDER (6) COPD (chronic obstructive pulmonary disease) Code(s): J44.9 - CHRONIC OBSTRUCTIVE PULMONARY DISEASE, UNSPECIFIED Qualifiers: COPD type: emphysema Emphysema type: unspecified Qualified Code(s): J43.9 - Emphysema, unspecified Not in flare and would d/c IV steroids (7) Hypertension Code(s): I10 - ESSENTIAL (PRIMARY) HYPERTENSION Qualifiers: Hypertension type: essential hypertension Qualified Code(s): I10 - Essential (primary) hypertension
[2018-08-23] MEDS ORDERED: FOLIC ACID INJECTION - 1 MG, THIAMINE HCL 100 MG, MULTIVIT INJECTION ADULT 10 ML in SOD... IVPB ONE (12:05)
[2018-08-23] MEDS: NICOTINE 21 MG/24 HOURS TOPICAL PATCH TD SCH (12:52)
--- NOTE | 2018-08-23 13:25 | ECHO ---
Name: RACHEL STEEL. Exam:Adult Echocardiogram Study Date: 08/23/2018 12:05 PM Age: 68 yrs Reason For Study: A-Fib Height: 73 in Weight: 187 lb BSA: 2.1 m2 MMode/2D Measurements & Calculations LVIDd: 3.6 cm Ao root diam: 3.6 cm LVIDs: 2.2 cm LA dimension: 3.3 cm EDV(Teich): 54.6 ml LVOT diam: 2.2 cm ESV(Teich): 17.1 ml Doppler Measurements & Calculations Ao V2 max: 89.4 cm/sec Ao max P.2 mmHg Procedure A complete two-dimensional transthoracic echocardiogram was performed (2D, M-mode, Doppler and color flow Doppler). Left Ventricle The left ventricle is normal in size. Left ventricular systolic function is normal. Ejection Fraction = 65- 70%. No regional wall motion abnormalities noted. Right Ventricle The right ventricle is normal size. The right ventricular systolic function is normal. Atria The left atrial size is normal. Right atrial size is normal. Mitral Valve There is mild mitral annular calcification. There is no mitral regurgitation noted. Tricuspid Valve The tricuspid valve is normal in structure and function. No tricuspid regurgitation. Aortic Valve There is mild aortic sclerosis.;. Mild to moderate aortic regurgitation. Pulmonic Valve The pulmonic valve is not well visualized. Great Vessels The aortic root is normal size. Pericardium/Pleura There is no pericardial effusion. Interpretation Summary The left ventricle is normal in size. Left ventricular systolic function is normal. No regional wall motion abnormalities noted. Ejection Fraction = 65-70%. The right ventricular systolic function is normal. The left atrial size is normal. Right atrial size is normal. There is mild mitral annular calcification. There is no mitral regurgitation noted. There is mild aortic sclerosis. Mild to moderate aortic regurgitation. There is no pericardial effusion. Previous study is not available for comparison Elias Bass MD 08/23/2018 01:25 PM
--- NOTE | 2018-08-23 13:28 | CON.PULM ---
Consult Consult Specialty:: PULMONARY Referred by:: Dr Cobb Reason for Consultation:: shortness of breath - History of Present Illness Chief Complaint: shortness of breath History of Present Illness: 68yo male with h/o COPD, paroxysmal atrial fibrillation, CHF, heroin/alcohol abuse who was sent from [facility] for shortness of breath and after found to be in rapid atrial fibrillation. Denies any chest pain or palpitations. He has been feeling more short of breath for months. Quit smoking about a month ago during a hospitalization, had been smoking 1 1/2-2 PPD until then. Maintained on nebulizer treatments at home. +chronic cough and wheezing. No fevers but endorses chills. No leg swelling but has been experiencing orthopnea. Maintained on propranolol and cardizem at home, had missed 2 doses prior to presentation. - History Source History Provided By: Patient, Medical Record Limitations to Obtaining History: No Limitations - Past Medical History Cardio/Vascular: Yes: AFIB Pulmonary: Yes: COPD - Alcohol/Substance Use Hx Alcohol Use: Yes - Smoking History Smoking history: Former smoker Have you smoked in the past 12 months: Yes Aproximately how many cigarettes per day: 40 Home Medications - Allergies Allergies/Adverse Reactions: Allergies Allergy/AdvReac Type Severity Reaction Status Date / Time Sulfa (Sulfonamide Allergy Severe Hives Verified 08/22/18 14:20 Antibiotics) - Home Medications Home Medications: Ambulatory Orders Quetiapine Fumarate [Seroquel -] 200 mg PO HS 01/19/17 Propranolol HCl [Inderal Xl] 80 mg PO DAILY #30 mg 01/24/17 Diltiazem Cd [Cardizem Cd -] 120 mg PO BID 08/22/18 Family Disease History - Family Disease History Family Disease History: Heart Disease: Mother, [place]: Father Review of Systems - Review of Systems Constitutional: reports: Chills, Weakness. denies: Fever Eyes: denies: Recent Change in Vision HENT: denies: Nasal Congestion, Throat Pain Neck: denies: Stiffness, Tenderness Cardiovascular: reports: Palpitations, Shortness of Breath. denies: Chest Pain , Edema Respiratory: reports: Cough, SOB on Exertion, Wheezing. denies: Hemoptysis Gastrointestinal: denies: Abdominal Pain, Nausea, Vomiting Genitourinary: denies: Dysuria, Hematuria Neurological: denies: Dizziness, Headache Endocrine: denies: Unexplained Weight Loss Physical Exam Vital Sings: Vital Signs Temperature 98.2 F 08/23/18 06:49 Pulse Rate 79 08/23/18 07:31 Respiratory Rate 16 08/23/18 07:31 Blood Pressure 109/79 08/23/18 07:31 O2 Sat by Pulse Oximetry (%) 97 08/23/18 06:49 Constitutional: Yes: Calm Eyes: Yes: Conjunctiva Clear, EOM Intact HENT: Yes: Atraumatic, Normocephalic Neck: Yes: Supple, Trachea Midline Cardiovascular: Yes: Tachycardia, Pulse Irregular Respiratory: Yes: Rhonchi, Wheezes ...Clubbing: No Gastrointestinal: Yes: Normal Bowel Sounds, Soft. No: Tenderness Edema: No Neurological: Yes: Alert, Oriented Labs: CBC, BMP 08/23/18 09:12 08/23/18 09:21 Imaging - Results Chest X-ray: Report Reviewed, Image Reviewed (left basilar atelectasis) Problem List - Problems (1) Atrial fibrillation with RVR Code(s): I48.91 - UNSPECIFIED ATRIAL FIBRILLATION (2) COPD with acute exacerbation Code(s): J44.1 - CHRONIC OBSTRUCTIVE PULMONARY DISEASE W (ACUTE) EXACERBATION (3) Alcohol dependence with uncomplicated withdrawal Code(s): F10.230 - ALCOHOL DEPENDENCE WITH WITHDRAWAL, UNCOMPLICATED (4) Opioid dependence with withdrawal Code(s): F11.23 - OPIOID DEPENDENCE WITH WITHDRAWAL Assessment/Plan Acute COPD Exacerbation Paroxysmal Atrial Fibrillation with RVR Alcohol/Heroin Abuse - IV medrol - reduced dose inhaled bronchodilators - O2 to keep SpO2 >90% - empiric azithromycin - rate control - continue anticoagulation - will need outpt PFTs and screening CT chest Thank you for this consult Robert Ferrari MD
[2018-08-23] MEDS ORDERED: AZITHROMYCIN IVPB 500 MG in DEXTROSE 5%-WATER - 250 ML IVPB SCH (13:45)
--- NOTE | 2018-08-23 14:12 | PN ---
Teaching Attending Note Name of Resident: Mariela Zambrano ATTENDING PHYSICIAN STATEMENT I saw and evaluated the patient. I reviewed the resident's note and discussed the case with the resident. I agree with the resident's findings and plan as documented. SUBJECTIVE:mildly agitated. anxious to return to [facility] for continued care. states he is compliant with medications at home. has been on cardizem and propanolol for many years and has been controlled and only went into afib since he missed his dose at [facility] yesterday since it was not on their intake form. denies CP, SOB, fever, chills, N/v/C/D, auditory/visual hallucinations reports negative stress test 10 years ago. never had a cath OBJECTIVE: Last Vital Signs Temp Pulse Resp BP Pulse Ox 98.2 F 79 16 109/79 97 08/23/18 06:49 08/23/18 07:31 08/23/18 07:31 08/23/18 07:31 08/23/18 06:49 General mildly anxious HEENT dilated pupils, PERRL CV S1 S2 irregular +murmur Lungs scattered wheezing and rhonchi Extremities no tremors, no piloerrection ASSESSMENT AND PLAN: 68yo M wtih PMH parox afib, COPD, HTN, seiuzre, bipolar, continuous polysubstance abuse (ETOH, heroin, tobacco) presented to the ER with palpitations and found to be in Afib iwth RVR 1. Afib with RVR- HR 164. rate now controlled. was on cardizem ggt and re- started home dose of cardizem and controlled. echo pending. would likely qualify for anticoagulation however due to substance abuse would be high risk of bleeding. cardio on board. TSH WNL 2. Acute COPD exacerbation- mild wheezing. was supposedly recently diagnosed with bronchitis and did not take steroids. would give short course. on medrol 40mg Q8H, azithro day 2. nebs prn. pulmonary consulted 3. ETOH withdrawal- CIWA 14. on librium protocol. banana bag. detox consult. not interested in inpatient rehab. will go to 4. Heroin withdrawal- COWS 9 on methadone protocol. clonidine prn withdrawals. detox consulted 5. Transaminitis- ALT>AST. liver u/s showing fatty liver and prominent pancreatic duct. theres is no pain. will need MRCP outpatient 6. HTN- low BP here. hold antihypertensives. should improve as rate is slowed 7. seizure- unclear if etoh withdrawal or not. not on antieleptics. monitor for seizures 8. bipolar 9. DVT ppx- lovenox.
[2018-08-23] MEDS ORDERED: ALBUTEROL SO4 2.5/IPRATROPIUM 0.5 INH SOL 3 ML VIAL.NEB. NEB ONE (14:39)
[2018-08-23] MEDS ORDERED: AZITHROMYCIN IVPB 500 MG/250 ML BAG IVPB ONE (14:39)
[2018-08-23] MEDS: IPRATROPIUM BR 0.02% 0.5 MG/2.5 ML VIAL.NEB. NEB SCH ×2 (14:57→21:08)
[2018-08-23] MEDS: ALBUTEROL SO4 0.042% IH SOL 1.25 MG/3 ML VIAL.NEB NEB SCH ×2 (14:57→21:08)
[2018-08-23] MEDS: DILTIAZEM INJECTION 125 MG in SODIUM CHLORIDE 100 ML IVPB SCH (18:20)
--- NOTE | 2018-08-23 19:29 | PN ---
Physical Exam: SUBJECTIVE: Patient seen and examined. Pt seen in am. Diltiazem drip dc'd in am with rate control -HR-79. PO diltiazem started in am. Propranolol held with soft BP and controlled HR. Pt admitted last use of heroine/alcohol 2 days prior. Checked into detox with . Does not want to do 30day rehab. Wants AAA. Pt wants to inform in [facility] of his whereeabouts OBJECTIVE: Vital Signs Period Temp Pulse Resp BP Sys/Torres Pulse Ox Last 24 Hr 98.2 F-98.4 F 76-136 15-20 86-125/57-89 96-98 Vital Signs Temp 98.2 F 08/23/18 06:49 Pulse 120 H 08/23/18 18:18 Resp 15 08/23/18 17:29 BP 121/87 08/23/18 17:29 Pulse Ox 98 08/23/18 17:29 Intake & Output 08/22/18 08/23/18 08/23/18 23:59 11:59 23:59 Weight 84.822 kg Other: Voiding Method Urinal Height 1.85 m Body Mass Index (BMI) 24.6 Weight Measurement Method Est/Stated by Patient GENERAL: The patient is awake, but drowsy. HEAD: Normal with no signs of trauma. EYES: extraocular movements intact, sclera anicteric, conjunctiva clear. ENT: moist mucous membranes. NECK: supple. LUNGS: Reduced breath sounds, scattered wheezes, no crackles HEART: Regular rate and rhythm, S1, S2 without murmur ABDOMEN: Soft, nontender, distended, hypoactive bowel sounds, no guarding, no rebound EXTREMITIES: 2+ pulses, warm, well-perfused, no edema. NEUROLOGICAL: Cranial nerves II through XII grossly intact. Normal speech, gait not observed. PSYCH: Normal mood, normal affect. SKIN: Warm, dry, normal turgor, no rashes or lesions noted Laboratory Results - last 24 hr 08/22/18 08/22/18 08/23/18 15:05 22:53 04:13 WBC RBC Hgb Hct MCV MCH MCHC RDW Plt Count MPV Absolute Neuts (auto) Neutrophils % Neutrophils % (Manual) Band Neutrophils % Lymphocytes % Lymphocytes % (Manual) Monocytes % Monocytes % (Manual) Eosinophils % Eosinophils % (Manual) Basophils % Basophils % (Manual) Myelocytes % (Man) Promyelocytes % (Man) Blast Cells % (Manual) Nucleated RBC % Metamyelocytes Hypochromia Platelet Estimate Polychromasia Poikilocytosis Anisocytosis Microcytosis Macrocytosis Tear Drop Cells Sodium 142 Potassium 3.8 Chloride 108 H Carbon Dioxide 27 Anion Gap 6 L BUN 16 Creatinine 0.9 Creat Clearance w eGFR 84.43 Random Glucose 107 H Calcium 8.1 L Phosphorus 3.3 Magnesium 2.3 Total Bilirubin 0.4 AST 47 H ALT 67 H Alkaline Phosphatase 108 Creatine Kinase 26 Troponin I 0.02 < 0.02 Total Protein 6.1 L Albumin 2.8 L Triglycerides Cholesterol Total LDL Cholesterol HDL Cholesterol TSH 0.81 Opiates Screen Positive A* Methadone Screen Negative Barbiturate Screen Negative Phencyclidine Screen Negative Ur Amphetamines Screen Negative MDMA (Ecstasy) Screen Negative Benzodiazepines Screen Positive A* Cocaine Screen Negative U Marijuana (THC) Screen Positive A* 08/23/18 08/23/18 09:12 09:21 WBC 12.9 H RBC 4.94 Hgb 15.0 Hct 45.2 MCV 91.5 MCH 30.3 MCHC 33.1 RDW 14.1 Plt Count 146 MPV 11.3 H Absolute Neuts (auto) 11.8 H Neutrophils % 91.8 H D Neutrophils % (Manual) 89.3 H Band Neutrophils % 1.9 Lymphocytes % 6.7 L D Lymphocytes % (Manual) 6.8 L Monocytes % 1.5 L D Monocytes % (Manual) 2 L Eosinophils % 0.0 D Eosinophils % (Manual) 0.0 Basophils % 0.0 Basophils % (Manual) 0.0 Myelocytes % (Man) 0 Promyelocytes % (Man) 0 Blast Cells % (Manual) 0 Nucleated RBC % 0 Metamyelocytes 0 Hypochromia 0 Platelet Estimate Decreased Polychromasia 0 Poikilocytosis 0 Anisocytosis 0 Microcytosis 0 Macrocytosis 0 Tear Drop Cells 1+ Sodium 140 Potassium 3.9 Chloride 107 Carbon Dioxide 24 Anion Gap 9 BUN 17 Creatinine 0.9 Creat Clearance w eGFR 84.43 Random Glucose 201 H Calcium 8.7 Phosphorus 2.6 Magnesium 2.2 Total Bilirubin 0.7 AST 41 H ALT 68 H Alkaline Phosphatase 101 Creatine Kinase Troponin I Total Protein 6.8 Albumin 3.1 L Triglycerides 146 Cholesterol 166 Total LDL Cholesterol 100 HDL Cholesterol 58 TSH Opiates Screen Methadone Screen Barbiturate Screen Phencyclidine Screen Ur Amphetamines Screen MDMA (Ecstasy) Screen Benzodiazepines Screen Cocaine Screen U Marijuana (THC) Screen Ambulatory Orders Quetiapine Fumarate [Seroquel -] 200 mg PO HS 01/19/17 Propranolol HCl [Inderal Xl] 80 mg PO DAILY #30 mg 01/24/17 Diltiazem Cd [Cardizem Cd -] 120 mg PO BID 08/22/18 Current Medications Albuterol Sulfate (Ventolin 0.042trength) -) 1 amp NEB RTID [facility] Last Admin: 08/23/18 14:57 Dose: 1 amp Chlordiazepoxide HCl (Librium -) 10 mg PO Q12H PRN PRN Reason: Signs/symptoms of Withdrawal Stop: 08/26/18 05:00 Chlordiazepoxide HCl (Librium -) 10 mg PO Q8H PRN PRN Reason: Signs/symptoms of Withdrawal Stop: 08/25/18 05:00 Last Admin: 08/23/18 10:37 Dose: 10 mg Chlordiazepoxide HCl (Librium -) 15 mg PO Q8H [facility] Stop: 08/24/18 21:01 Chlordiazepoxide HCl (Librium -) 10 mg PO Q8H [facility] Stop: 08/26/18 05:01 Clonidine (Catapres -) 0.1 mg PO Q6H PRN PRN Reason: Withdrawal Symptoms Stop: 08/25/18 23:59 Last Admin: 08/23/18 18:19 Dose: 0.1 mg Clonidine (Catapres -) 0.1 mg PO Q6H PRN PRN Reason: Withdrawal Symptoms Stop: 08/25/18 23:59 Diltiazem HCl (Cardizem Cd -) 120 mg PO BID [facility] Last Admin: 08/23/18 08:15 Dose: 120 mg Enoxaparin Sodium (Lovenox -) 80 mg SQ Q12H [facility] Last Admin: 08/23/18 18:19 Dose: 80 mg Diltiazem HCl 125 mg/ Sodium (Chloride) 125 mls @ 10 mls/hr IVPB TITR [facility]; Protocol Last Titration: 08/23/18 18:20 Dose: 0 mg/hr, 0 mls/hr Folic Acid 1 mg/ Thiamine HCl 100 mg/ Multivitamins/Minerals 10 ml/ Sodium Chloride 1,000 mls @ 125 mls/hr IVPB ONCE ONE Stop: 08/23/18 20:04 Last Admin: 08/23/18 12:52 Dose: 125 mls/hr Azithromycin (Zithromax 500mg Ivpb (Pre-Docked)) 500 mg in 250 mls @ 250 mls/ hr IVPB DAILY [facility] Stop: 08/27/18 10:59 Ipratropium [place] (Atrovent 0.02% Nebulizer -) 1 amp NEB RTID [facility] Last Admin: 08/23/18 14:57 Dose: 1 amp Methadone HCl (Dolophine -) 5 mg PO ONCE ONE Stop: 08/24/18 06:01 Methadone HCl (Dolophine -) 10 mg PO ONCE@2300 ONE Stop: 08/23/18 23:01 Methadone HCl (Dolophine -) 15 mg PO ONCE ONE Stop: 08/24/18 10:01 Methadone HCl (Dolophine -) 10 mg PO ONCE ONE Stop: 08/25/18 10:01 Methadone HCl (Dolophine -) 5 mg PO ONCE ONE Stop: 08/26/18 06:01 Methylprednisolone Sodium Succinate (Solu-Medrol -) 40 mg IVPUSH Q8H-IV [facility] Last Admin: 08/23/18 18:18 Dose: 40 mg Nicotine (Nicoderm Patch -) 21 mg TD DAILY [facility] Last Admin: 08/23/18 12:52 Dose: 21 mg Nicotine Polacrilex (Nicorette Gum -) 2 mg BUC Q2H PRN PRN Reason: NICOTINE REPLACEMENT RX Last Admin: 08/23/18 17:46 Dose: 2 mg Propranolol HCl (Inderal La -) 80 mg PO DAILY [facility] Quetiapine Fumarate (Seroquel -) 100 mg PO HS [facility] Last Admin: 08/22/18 22:14 Dose: 100 mg ECHO 08/23/18:Nl LV systolic function, LVF, LVEF-65-70%calcification, No regional abnormalities. Mild mitral annular calcification. Mild to moderate aortic R lung Abd US 08/23/18: Hepatomegaly 18.5cm with fatty liver, pancreatic duct prominence Utox-opiate +, benzo+, marijuana + Hep C pending ASSESSMENT/PLAN: Pt. is a 68 y.o. M w/ PMHx. of Polysubstance abuse (Heroin and EtOH), Hep C( untreated), Asthma/COPD, and Seizure episode x1 who presented from [facility] for shortness of breath on exertion and found to be in A.Fib with RVR. #Paroxysmal A.Fib w. RVR Cardizem Drip d/c Cont home Diltiazem and Propanolol, UTox- Negative for cocaine Per pt he has been on propranolol for rate control for up to 10years. Echo- Nl EF CHADVASC score is 2 Per Cards-Currently on full dose Lovenox, not ideal long-term a/c candidate with ongoing chronic polysubstance abuse TSH-0.81 #Dyspnea on Exertion Recent poor medication compliance in exacerbation of asthma/COPD Current smoker with asthma/COPD Given Solumedrol 125mg in ED c/w Solumedrol 40mg Q8H Cont azithromycin Pulmonology Consult ( Dr. Ferrari) appreciated CXR: showed mild blunting of the CDA #Polysubstance Abuse CIWA score:11 was 13 (was 14 on admission to [facility]) c/w Librium Protocol c/w Nicotine gum Add nicotoine patch 21 (smokes 2pd) c/w Quetiapine 100mg as recommended by Psych at [facility]. Pt. was on 200mg Seroquel in past but had adverse psych reactions including hallucinations and was therefore discontinued. Detox consult- Pt received methadone yesterday Methadone protocol started for moderate withdrawal COWs-7 today Clonidine 0.1mg Q6H Ipratropium neb Hold albuterol in setting of afib with RVR Does not want to do 30day rehab. Wants AAA. #Hx of Hep C Pending Hep C Ab #FEN Banana bag encourage PO intake monitor electrolytes and replete as needed Na restricted diet #DVT Ppx. c/w Lovenox 80mg BID #Dispo Tele Visit type - Emergency Visit Emergency Visit: Yes ED Registration Date: 08/22/18 Care time: The patient presented to the Emergency Department on the above date and was hospitalized for further evaluation of their emergent condition. - New Patient This patient is new to me today: Yes Date on this admission: 08/23/18 - Critical Care Critical Care patient: No - Discharge Referral Referred to [facility] Med P.C.: No
[2018-08-23] MEDS ORDERED: chlordiazePOXIDE 5 MG CAPSULE PO PRN (20:35)
[2018-08-23] MEDS ORDERED: IPRATROPIUM BR 0.02% 0.5 MG/2.5 ML VIAL.NEB. NEB ONE (21:06)
[2018-08-23] MEDS ORDERED: QUEtiapine FUMARATE 100 MG TABLET (FP) ONE (22:25)
[2018-08-23] MEDS: QUEtiapine FUMARATE 100 MG TABLET (FP) PO SCH (22:28)
[2018-08-24] MEDS: NICOTINE POLACRILEX 2 MG GUM BUC PRN ×3 (02:22→20:59)
[2018-08-24] MEDS: methylPREDNISolone NA SUCC 40 MG/1 ML VIAL IVPUSH SCH (02:23)
[2018-08-24 04:24] VITALS: BMI 25.4
[2018-08-24] MEDS ORDERED: FLU VACCINE QUAD 60 MCG/0.5 ML (MDV 18-19) IM ONE ×2 (04:24→06:30)
[2018-08-24] MEDS ORDERED: METHADONE HCL 5 MG TABLET PO ONE ×2 (04:45→10:00)
[2018-08-24] MEDS: chlordiazePOXIDE 5 MG CAPSULE PO SCH ×3 (05:25→20:57)
[2018-08-24] MEDS: ENOXAPARIN NA (PORCINE) 80 MG/0.8 ML DISP.SYRIN SQ SCH (05:26)
[2018-08-24] MEDS ORDERED: METHADONE HCL 5 MG TABLET (FOR DETOX USE ONLY) PO ONE (06:00)
[2018-08-24] MEDS ORDERED: PNEUMOC 13-VAL CONJ-DIP CRM/PF 0.5 ML DISP.SYRIN IM ONE (06:30)
[2018-08-24] MEDS: ALBUTEROL SO4 0.042% IH SOL 1.25 MG/3 ML VIAL.NEB NEB SCH ×3 (07:30→19:40)
[2018-08-24] MEDS: IPRATROPIUM BR 0.02% 0.5 MG/2.5 ML VIAL.NEB. NEB SCH ×3 (07:30→19:40)
[2018-08-24 07:40] LABS: BASO % 0.2 % (0-2.0); HEMATOCRIT 42.1 % (35.4-49); HEMOGLOBIN 14.1 GM/dL (11.7-16.9); LYMPH % 4.4 % (8-40); MCH 30.3 pg (25.7-33.7); MCHC 33.4 g/dl (32.0-35.9); MEAN CELL VOLUME 90.8 fl (80-96); MEAN PLT VOLUME 11.5 fl (7.5-11.1); MONO % 1.7 % (3.8-10.2); NEUT % 93.7 % (42.8-82.8); PLATELET COUNT 150 K/MM3 (134-434); RBC 4.64 M/mm3 (4.00-5.60); RDW 14.3 % (11.9-15.9); WHITE BLOOD COUNT 17.3 K/mm3 (4.0-10.0)
[2018-08-24 08:12] LABS: ALBUMIN 3.3 g/dl (3.4-5.0); ALK PHOS 85 U/L (45-117); ANION GAP 7 MMOL/L (8-16); BILIRUBIN,TOTAL 0.5 mg/dL (0.2-1); BLOOD UREA NITROGEN 20 mg/dL (7-18); CALCIUM 8.6 mg/dL (8.5-10.1); CHLORIDE 108 mmol/L (98-107); CO2 27 mmol/L (21-32); CREATININE 1.1 mg/dL (0.55-1.3); GLUCOSE,RANDOM 118 mg/dL (74-106); MAGNESIUM 2.6 mg/dL (1.8-2.4); PHOSPHOROUS 3.4 mg/dL (2.5-4.9); POTASSIUM 4.3 mmol/L (3.5-5.1); SGOT/AST 39 U/L (15-37); SGPT/ALT 68 U/L (13-61); SODIUM 142 mmol/L (136-145); TOT PROT 6.7 g/dl (6.4-8.2)
--- NOTE | 2018-08-24 09:26 | PN ---
Progress Note, Physician Chief Complaint: Events noted AF with RVR History of Present Illness: Patient was seen and examined. Awake and alert. Chart was reviewed Denies chest pain or SOB Anxious, but overall feels better Still with AF with RVR on telemetry - Current Medication List Current Medications: Active Medications Albuterol Sulfate (Ventolin 0.042trength) -) 1 amp NEB RTID [facility] Last Admin: 08/23/18 21:08 Dose: Not Given Chlordiazepoxide HCl (Librium -) 10 mg PO Q12H PRN PRN Reason: Signs/symptoms of Withdrawal Stop: 08/26/18 05:00 Chlordiazepoxide HCl (Librium -) 15 mg PO Q8H [facility] Stop: 08/24/18 21:01 Last Admin: 08/24/18 05:25 Dose: 15 mg Chlordiazepoxide HCl (Librium -) 10 mg PO Q8H [facility] Stop: 08/26/18 05:01 Chlordiazepoxide HCl (Librium -) 10 mg PO Q8H PRN PRN Reason: Signs/symptoms of Withdrawal Stop: 08/25/18 05:00 Last Admin: 08/23/18 23:16 Dose: 10 mg Clonidine (Catapres -) 0.1 mg PO Q6H PRN PRN Reason: Withdrawal Symptoms Stop: 08/25/18 23:59 Diltiazem HCl (Cardizem Cd -) 120 mg PO BID [facility] Last Admin: 08/23/18 22:28 Dose: 120 mg Enoxaparin Sodium (Lovenox -) 80 mg SQ Q12H [facility] Last Admin: 08/24/18 05:26 Dose: 80 mg Azithromycin (Zithromax 500mg Ivpb (Pre-Docked)) 500 mg in 250 mls @ 250 mls/ hr IVPB DAILY [facility] Stop: 08/27/18 10:59 Ipratropium [place] (Atrovent 0.02% Nebulizer -) 1 amp NEB RTID [facility] Last Admin: 08/23/18 21:08 Dose: 1 amp Methadone HCl (Dolophine -) 15 mg PO ONCE ONE Stop: 08/24/18 10:01 Methadone HCl (Dolophine -) 10 mg PO ONCE ONE Stop: 08/25/18 10:01 Methadone HCl (Dolophine -) 5 mg PO ONCE ONE Stop: 08/26/18 06:01 Methylprednisolone Sodium Succinate (Solu-Medrol -) 40 mg IVPUSH BID [facility] Nicotine (Nicoderm Patch -) 21 mg TD DAILY [facility] Last Admin: 08/23/18 12:52 Dose: 21 mg Nicotine Polacrilex (Nicorette Gum -) 2 mg BUC Q2H PRN PRN Reason: NICOTINE REPLACEMENT RX Last Admin: 08/24/18 02:22 Dose: 2 mg Propranolol HCl (Inderal La -) 80 mg PO DAILY [facility] Last Admin: 08/23/18 19:51 Dose: 80 mg Quetiapine Fumarate (Seroquel -) 100 mg PO HS [facility] Last Admin: 08/23/18 22:28 Dose: 100 mg - Objective Vital Signs: Vital Signs Temperature 97.9 F 08/24/18 08:35 Pulse Rate 116 H 08/24/18 08:35 Respiratory Rate 20 08/24/18 08:36 Blood Pressure 145/66 08/24/18 08:35 O2 Sat by Pulse Oximetry (%) 96 08/24/18 08:36 Eyes: Yes: PERRL HENT: Yes: Atraumatic Neck: Yes: Supple Cardiovascular: Yes: Tachycardia, Pulse Irregular, S1, S2 Respiratory: Yes: CTA Bilaterally Gastrointestinal: Yes: Normal Bowel Sounds, Soft. No: Tenderness Edema: No Additional Findings/Remarks: - Review of Systems Constitutional: denies: Chills, Fever Cardiovascular: denies: Chest Pain. (+) Palpitations, denies: Shortness of Breath Respiratory: denies Cough. denies: Hemoptysis, Orthopnea, PND, SOB, SOB on Exertion Gastrointestinal: denies: Abdominal Pain, Constipation, Diarrhea, Melena, Nausea , Rectal Bleeding, Vomiting Neurological: denies: Dizziness, Headache, Seizure, Syncope Labs: CBC, BMP 08/24/18 06:50 08/24/18 06:50 Problem List - Problems (1) Atrial fibrillation with RVR Code(s): I48.91 - UNSPECIFIED ATRIAL FIBRILLATION (2) COPD with acute exacerbation Code(s): J44.1 - CHRONIC OBSTRUCTIVE PULMONARY DISEASE W (ACUTE) EXACERBATION (3) Alcohol dependence with uncomplicated withdrawal Code(s): F10.230 - ALCOHOL DEPENDENCE WITH WITHDRAWAL, UNCOMPLICATED (4) Opioid dependence with withdrawal Code(s): F11.23 - OPIOID DEPENDENCE WITH WITHDRAWAL (5) Substance induced mood disorder Code(s): F19.94 - OTH PSYCHOACTIVE SUBSTANCE USE, UNSP W MOOD DISORDER (6) Asthma Code(s): J45.909 - UNSPECIFIED ASTHMA, UNCOMPLICATED Qualifiers: Asthma severity: mild persistent Asthma complication type: uncomplicated (7) Hypertension Code(s): I10 - ESSENTIAL (PRIMARY) HYPERTENSION Qualifiers: Hypertension type: essential hypertension Qualified Code(s): I10 - Essential (primary) hypertension (8) Anxiety and depression Code(s): F41.8 - OTHER SPECIFIED ANXIETY DISORDERS Assessment/Plan 1. AF with RVR, ? duration 2. HTN 3. Poly-substance abuse including Heroine, ETOH, cigarette smoking and Marijuana 4. COPD PLAN: 1. In view of persistent AF with RVR and [id number] score of 2 (HTN and age), would consider DOAC instead of Lovenox especially as he is planning to clean up his acts and be involved in detox and AA for drugs and ETOH. Consider Eliquis 5 mg BID and stop Lovenox 2. Change Propranolol to Metoprolol Tartrate at 50 mg BID and uptitrate ( Patient denies use of Cocaine) 3. Consider Cardizem IV for added rate control. Increase Cardizem CD to 180 mg QD 4. Continue Clonidine 5. Echocardiography reviewed 6. Continue detox 7. If remains in AF, may consider [place] guided synchronized cardioversion Further plans are to follow Elias Bass MD
[2018-08-24] MEDS ORDERED: dilTIAZem HCL 50 MG/10 ML - 10 ML VIAL IVPUSH ONE (09:31)
[2018-08-24] MEDS: NICOTINE 21 MG/24 HOURS TOPICAL PATCH TD SCH (09:45)
[2018-08-24] MEDS ORDERED: methylPREDNISolone NA SUCC 40 MG/1 ML VIAL IVPUSH SCH (10:00)
[2018-08-24] MEDS: APIXABAN 5 MG TABLET PO SCH ×2 (10:13→21:28)
[2018-08-24] MEDS: AZITHROMYCIN IVPB 500 MG/250 ML BAG IVPB SCH (10:13)
[2018-08-24] MEDS: METOPROLOL TARTRATE 50 MG TABLET (FP) PO SCH ×2 (10:13→21:29)
--- NOTE | 2018-08-24 10:32 | PN ---
Progress Note, Physician History of Present Illness: PULMONARY ALERT,FEELING BETTER,LESS DYSPNEIC - Current Medication List Current Medications: Active Medications Albuterol Sulfate (Ventolin 0.042trength) -) 1 amp NEB RTID [facility] Last Admin: 08/24/18 07:30 Dose: 1 amp Apixaban (Eliquis -) 5 mg PO BID [facility] Last Admin: 08/24/18 10:13 Dose: 5 mg Chlordiazepoxide HCl (Librium -) 10 mg PO Q12H PRN PRN Reason: Signs/symptoms of Withdrawal Stop: 08/26/18 05:00 Chlordiazepoxide HCl (Librium -) 15 mg PO Q8H [facility] Stop: 08/24/18 21:01 Last Admin: 08/24/18 05:25 Dose: 15 mg Chlordiazepoxide HCl (Librium -) 10 mg PO Q8H [facility] Stop: 08/26/18 05:01 Chlordiazepoxide HCl (Librium -) 10 mg PO Q8H PRN PRN Reason: Signs/symptoms of Withdrawal Stop: 08/25/18 05:00 Last Admin: 08/23/18 23:16 Dose: 10 mg Clonidine (Catapres -) 0.1 mg PO Q6H PRN PRN Reason: Withdrawal Symptoms Stop: 08/25/18 23:59 Diltiazem HCl (Cardizem Cd -) 120 mg PO BID [facility] Last Admin: 08/24/18 09:44 Dose: 120 mg Azithromycin (Zithromax 500mg Ivpb (Pre-Docked)) 500 mg in 250 mls @ 250 mls/ hr IVPB DAILY [facility] Stop: 08/27/18 10:59 Last Admin: 08/24/18 10:13 Dose: 250 mls/hr Ipratropium [place] (Atrovent 0.02% Nebulizer -) 1 amp NEB RTID [facility] Last Admin: 08/24/18 07:30 Dose: 1 amp Methadone HCl (Dolophine -) 10 mg PO ONCE ONE Stop: 08/25/18 10:01 Methadone HCl (Dolophine -) 5 mg PO ONCE ONE Stop: 08/26/18 06:01 Methylprednisolone Sodium Succinate (Solu-Medrol -) 40 mg IVPUSH BID [facility] Last Admin: 08/24/18 09:45 Dose: 40 mg Metoprolol Tartrate (Lopressor -) 50 mg PO BID [facility] Last Admin: 08/24/18 10:13 Dose: 50 mg Nicotine (Nicoderm Patch -) 21 mg TD DAILY [facility] Last Admin: 08/24/18 09:45 Dose: 21 mg Nicotine Polacrilex (Nicorette Gum -) 2 mg BUC Q2H PRN PRN Reason: NICOTINE REPLACEMENT RX Last Admin: 08/24/18 09:44 Dose: 2 mg Quetiapine Fumarate (Seroquel -) 100 mg PO HS [facility] Last Admin: 08/23/18 22:28 Dose: 100 mg - Objective Vital Signs: Vital Signs Temperature 97.9 F 08/24/18 08:35 Pulse Rate 116 H 08/24/18 08:35 Respiratory Rate 20 08/24/18 08:36 Blood Pressure 145/66 08/24/18 08:35 O2 Sat by Pulse Oximetry (%) 96 08/24/18 08:36 Constitutional: Yes: Well Nourished, Calm Eyes: Yes: WNL HENT: Yes: WNL Neck: Yes: WNL Cardiovascular: Yes: Pulse Irregular, S1, S2 Respiratory: Yes: Diminished Gastrointestinal: Yes: Normal Bowel Sounds, Soft Extremities: Yes: WNL Labs: CBC, BMP 08/24/18 06:50 08/24/18 06:50 Assessment/Plan Problem List - Problems (1) Atrial fibrillation with RVR Code(s): I48.91 - UNSPECIFIED ATRIAL FIBRILLATION (2) COPD with acute exacerbation Code(s): J44.1 - CHRONIC OBSTRUCTIVE PULMONARY DISEASE W (ACUTE) EXACERBATION (3) Alcohol dependence with uncomplicated withdrawal Code(s): F10.230 - ALCOHOL DEPENDENCE WITH WITHDRAWAL, UNCOMPLICATED (4) Opioid dependence with withdrawal Code(s): F11.23 - OPIOID DEPENDENCE WITH WITHDRAWAL Assessment/Plan Acute COPD Exacerbation Paroxysmal Atrial Fibrillation with RVR Alcohol/Heroin Abuse - medrol taper - inhaled bronchodilators - O2 to keep SpO2 >90% - azithromycin - rate control - continue anticoagulation - will need outpt PFTs - chest ct DR SIERRA
--- NOTE | 2018-08-24 11:22 | EKG ---
Test Reason : Blood Pressure : / mmHG Vent. Rate : 123 BPM Atrial Rate : 416 BPM P-R Int : 000 ms QRS Dur : 094 ms QT Int : 322 ms P-R-T Axes : 000 032 045 degrees QTc Int : 460 ms ATRIAL FIBRILLATION WITH RAPID VENTRICULAR RESPONSE ABNORMAL ECG Confirmed by MD ORVILLE, MARK ([id number]) on 08/24/2018 11:22:42 AM Referred By: Russell AMBROCIO Confirmed By:MARK JACINTO MD
[2018-08-24] MEDS ORDERED: predniSONE 20 MG TABLET (UD) PO ONE (13:16)
--- NOTE | 2018-08-24 13:51 | PN ---
Physical Exam: SUBJECTIVE: Patient seen and examined. Pt. feels well. Asking for Ensure. Denies any acute complaints. Relioeved to be out of the ED but nervous about getting back to Detox and cessation of drug use. OBJECTIVE: Vital Signs Period Temp Pulse Resp BP Sys/Torres Pulse Ox Last 24 Hr 97.9 F-98.3 F 61-120 15-20 121-145/55-94 95-98 GENERAL: The patient is awake, alert, and fully oriented, in no acute distress. HEAD: Normal with no signs of gross trauma. EYES: extraocular movements intact, sclera anicteric, conjunctiva clear. ENT: Ears normal, nares patent, oropharynx clear without exudates, moist mucous membranes. NECK: Trachea midline, full range of motion, supple. LUNGS: Breath sounds equal, clear to auscultation bilaterally, no wheezes, no crackles, no accessory muscle use. HEART: Regular rate and rhythm, S1, S2 without murmur ABDOMEN: Soft, nontender, nondistended, normoactive bowel sounds, no guarding, no rebound EXTREMITIES: 2+ radial pulses, warm, well-perfused, no edema. NEUROLOGICAL: Increased speech, gait not observed. PSYCH: Anxious, racing thoughts SKIN: Warm, dry, normal turgor, no rashes or lesions noted Laboratory Results - last 24 hr 08/24/18 08/24/18 06:50 06:50 WBC 17.3 H RBC 4.64 Hgb 14.1 Hct 42.1 MCV 90.8 MCH 30.3 MCHC 33.4 RDW 14.3 Plt Count 150 MPV 11.5 H Absolute Neuts (auto) 16.2 H Neutrophils % 93.7 H Lymphocytes % 4.4 L D Monocytes % 1.7 L Eosinophils % 0.0 Basophils % 0.2 D Nucleated RBC % 0 Sodium 142 Potassium 4.3 Chloride 108 H Carbon Dioxide 27 Anion Gap 7 L BUN 20 H Creatinine 1.1 Creat Clearance w eGFR 66.97 Random Glucose 118 H Calcium 8.6 Phosphorus 3.4 Magnesium 2.6 H Total Bilirubin 0.5 AST 39 H ALT 68 H Alkaline Phosphatase 85 Total Protein 6.7 Albumin 3.3 L Active Medications Home Medications Medication Instructions Recorded Quetiapine Fumarate [Seroquel -] 200 mg PO HS 01/19/17 Propranolol HCl [Inderal Xl] 80 mg PO DAILY #30 mg 01/24/17 Diltiazem Cd [Cardizem Cd -] 120 mg PO BID 08/22/18 Current Medications Albuterol Sulfate (Ventolin 0.042trength) -) 1 amp NEB RTID [facility] Last Admin: 08/24/18 07:30 Dose: 1 amp Apixaban (Eliquis -) 5 mg PO BID [facility] Last Admin: 08/24/18 10:13 Dose: 5 mg Chlordiazepoxide HCl (Librium -) 10 mg PO Q12H PRN PRN Reason: Signs/symptoms of Withdrawal Stop: 08/26/18 05:00 Chlordiazepoxide HCl (Librium -) 15 mg PO Q8H [facility] Stop: 08/24/18 21:01 Last Admin: 08/24/18 12:59 Dose: 15 mg Chlordiazepoxide HCl (Librium -) 10 mg PO Q8H [facility] Stop: 08/26/18 05:01 Chlordiazepoxide HCl (Librium -) 10 mg PO Q8H PRN PRN Reason: Signs/symptoms of Withdrawal Stop: 08/25/18 05:00 Last Admin: 08/23/18 23:16 Dose: 10 mg Clonidine (Catapres -) 0.1 mg PO Q6H PRN PRN Reason: Withdrawal Symptoms Stop: 08/25/18 23:59 Diltiazem HCl (Cardizem Cd -) 120 mg PO BID [facility] Last Admin: 08/24/18 09:44 Dose: 120 mg Azithromycin (Zithromax 500mg Ivpb (Pre-Docked)) 500 mg in 250 mls @ 250 mls/ hr IVPB DAILY [facility] Stop: 08/27/18 10:59 Last Admin: 08/24/18 10:13 Dose: 250 mls/hr Ipratropium [place] (Atrovent 0.02% Nebulizer -) 1 amp NEB RTID [facility] Last Admin: 08/24/18 07:30 Dose: 1 amp Methadone HCl (Dolophine -) 10 mg PO ONCE ONE Stop: 08/25/18 10:01 Methadone HCl (Dolophine -) 5 mg PO ONCE ONE Stop: 08/26/18 06:01 Metoprolol Tartrate (Lopressor -) 50 mg PO BID [facility] Last Admin: 08/24/18 10:13 Dose: 50 mg Nicotine (Nicoderm Patch -) 21 mg TD DAILY [facility] Last Admin: 08/24/18 09:45 Dose: 21 mg Nicotine Polacrilex (Nicorette Gum -) 2 mg BUC Q2H PRN PRN Reason: NICOTINE REPLACEMENT RX Last Admin: 08/24/18 09:44 Dose: 2 mg Prednisone (Deltasone -) 40 mg PO DAILY [facility] Quetiapine Fumarate (Seroquel -) 100 mg PO HS [facility] Last Admin: 08/23/18 22:28 Dose: 100 mg ASSESSMENT/PLAN: Pt. is a 68 y.o. M w/ PMHx. of Polysubstance abuse (Heroin and EtOH), Hep C( untreated), Asthma/COPD, and Seizure episode x1 presents from [facility] for shortness of breath on exertion and found to be in A.Fib with RVR. #Paroxysmal A.Fib w. RVR D/c Cardizem Drip and Propanolol C/w Cardizem 120mg BID Start Metoprolol Tartrate 50mg Daily Echo(08/23/18)- shows mild annular calcification, LVEF 65-70%, mild-mod aortic regurg. Switched from Lovenox to Eliquis as CHADVASC score is 2 #Dyspnea on Exertion likely 2/2 COPD exacerbation Given Solumedrol 125mg in ED D/c Solumedrol 40mg Q8H Given 60mg Prednison PO, will c/w 40mg Daily for 2 more days Pulmonology Consult ( Dr. Ferrari) appreciated, c/w Duonebs including reduced dose Albuterol in light of A.Fib. CXR: showed mild blunting of the CDA CT Chest shows mild bibasilar atelectasis, and suspicion of mild bronchiectasis. Will start Symbicort 80/4.5 on D/C as Pt. has been using home nebulizers daily to treat symptoms. #Polysubstance Abuse CIWA score: 7 (was 14 on admission to [facility]) c/w Librium Protocol c/w Methadone protocol COWS: 7 c/w Nicotine gum c/w Quetiapine 100mg as recommended by Psych at [facility]. Pt. was on 200mg Seroquel in past but had adverse psych reactions including hallucinations and was therefore discontinued. #FEN encourage PO intake monitor electrolytes and replete as needed Na restricted diet #DVT Ppx. switched to Eliquis 5mg BID Visit type - Emergency Visit Emergency Visit: Yes ED Registration Date: 08/22/18 Care time: The patient presented to the Emergency Department on the above date and was hospitalized for further evaluation of their emergent condition. - New Patient This patient is new to me today: No - Critical Care Critical Care patient: No - Discharge Referral [facility]erred to [facility] No
[2018-08-24 13:59] LABS: ANISOCYTOSIS 0; HELMET CELLS 0; HOWELL-JOLLY BODIES 0; MACROCYTOSIS 0; OVALOCYTE 0; PLATELET ESTIMATE DECREASED; ROULEAU 0; SICKELED CELLS 0; TARGET CELLS 0; TEAR DROP CELLS 0; TOXIC GRANULATION 0
--- NOTE | 2018-08-24 14:27 | PN ---
Teaching Attending Note Name of Resident: Heath Dias ATTENDING PHYSICIAN STATEMENT I saw and evaluated the patient. I reviewed the resident's note and discussed the case with the resident. I agree with the resident's findings and plan as documented. SUBJECTIVE: Feels well - no palpitations, sweating, nausea, vomiting, tremor. No fever/chills OBJECTIVE: Afebrile, Hemodynamically Stable. Last Vital Signs Temp Pulse Resp BP Pulse Ox 97.9 F 116 H 20 145/66 96 08/24/18 08:35 08/24/18 08:35 08/24/18 08:36 08/24/18 08:35 08/24/18 08:36 HEENT - Atraumatic, Normocephalic Heart - S1, S2, RRR Lungs - clear to auscultation Abdomen - Soft, non-tender. Bowel Sounds normal. Extremities - no edema, no calf tenderness Neuro - AAO x 3. No tremor. Laboratory Results - last 24 hr 08/24/18 08/24/18 06:50 06:50 WBC 17.3 H RBC 4.64 Hgb 14.1 Hct 42.1 MCV 90.8 MCH 30.3 MCHC 33.4 RDW 14.3 Plt Count 150 MPV 11.5 H Absolute Neuts (auto) 16.2 H Neutrophils % 93.7 H Lymphocytes % 4.4 L D Monocytes % 1.7 L Eosinophils % 0.0 Basophils % 0.2 D Nucleated RBC % 0 Sodium 142 Potassium 4.3 Chloride 108 H Carbon Dioxide 27 Anion Gap 7 L BUN 20 H Creatinine 1.1 Creat Clearance w eGFR 66.97 Random Glucose 118 H Calcium 8.6 Phosphorus 3.4 Magnesium 2.6 H Total Bilirubin 0.5 AST 39 H ALT 68 H Alkaline Phosphatase 85 Total Protein 6.7 Albumin 3.3 L Current Medications Generic Name Dose Route Start Last Admin Trade Name Freq PRN Reason Stop Dose Admin Albuterol Sulfate 1 amp 08/23/18 14:00 08/24/18 07:30 Ventolin 0.042trength) - NEB 1 amp RTID LORENZA Administration Apixaban 5 mg 08/24/18 10:00 08/24/18 10:13 Eliquis - PO 5 mg BID LORENZA Administration Chlordiazepoxide HCl 10 mg 08/25/18 05:00 Librium - PO 08/26/18 05:00 Q12H PRN Signs/symptoms of Withdrawal Chlordiazepoxide HCl 15 mg 08/24/18 05:00 08/24/18 12:59 Librium - PO 08/24/18 21:01 15 mg Q8H LORENZA Administration Chlordiazepoxide HCl 10 mg 08/25/18 05:00 Librium - PO 08/26/18 05:01 Q8H LORENZA Chlordiazepoxide HCl 10 mg 08/23/18 20:35 08/23/18 23:16 Librium - PO 08/25/18 05:00 10 mg Q8H PRN Administration Signs/symptoms of Withdrawal Clonidine 0.1 mg 08/23/18 15:19 Catapres - PO 08/25/18 23:59 Q6H PRN Withdrawal Symptoms Diltiazem HCl 120 mg 08/23/18 10:00 08/24/18 09:44 Cardizem Cd - PO 120 mg BID LORENZA Administration Azithromycin 500 mg in 250 mls @ 250 mls/hr 08/24/18 10:00 08/24/18 10:13 Zithromax 500mg Ivpb (Pre-Docked) IVPB 08/27/18 10:59 250 mls/hr DAILY LORENZA Administration Ipratropium [place] 1 amp 08/23/18 14:00 08/24/18 07:30 Atrovent 0.02% Nebulizer - NEB 1 amp RTID LORENZA Administration Methadone HCl 10 mg 08/25/18 10:00 Dolophine - PO 08/25/18 10:01 ONCE ONE Methadone HCl 5 mg 08/26/18 06:00 Dolophine - PO 08/26/18 06:01 ONCE ONE Metoprolol Tartrate 50 mg 08/24/18 10:00 08/24/18 10:13 Lopressor - PO 50 mg BID LORENZA Administration Nicotine 21 mg 08/23/18 12:15 08/24/18 09:45 Nicoderm Patch - TD 21 mg DAILY LORENZA Administration Nicotine Polacrilex 2 mg 08/22/18 18:42 08/24/18 09:44 Nicorette Gum - BUC 2 mg Q2H PRN Administration NICOTINE REPLACEMENT RX Prednisone 40 mg 08/25/18 10:00 Deltasone - PO DAILY LORENZA Quetiapine Fumarate 100 mg 08/22/18 22:00 08/23/18 22:28 Seroquel - PO 100 mg HS LORENZA Administration ASSESSMENT AND PLAN: 68 year old male with history of Polysubstance Abuse (Alcohol, Heroin, Tobacco, MJ), Paroxysmal Atrial Fibrillation, COPD, HTN, Hx of Seizure ?substance related , Bipolar Disorder, presented to the ER with palpitations and found to be in RVR. 1. Atrial Fibrillation with RVR - rate better controlled. Off Cardizem gtt - Propanolol changed to Metoprolol. Continue Cardizem PO. TSH normal. Eval by Cardio - started on AC with Eliquis. For possible MASON guided synchronized cardioversion if he remains in Atrial Fibrillation. Echo - normal EF, moderate AR. 2. Acute Exacerbation COPD - IV Solumedrol changed to oral Prednisone. Continue Bronchodilator Nebs, Azithromycin. CT Chest and outpatient PFTs as per Pulm. 3. Acute Alcohol and Heroin Withdrawal - on Librium protocol for Alcohol and Methadone for COWS protocol for Opiate Withdrawal. Clonidine prn. 4. HTN - Continue Lopressor and Diltiazem. 5. Elevated Transaminases - Abdomen US: Fatty liver, prominent pancreatic duct. Asymptomatic. Referral to GI for further Investigation/MRCP as an outpatient. 6. Hx Seizure - 1 seizure episode 2 years ago ?substance related. Not on anti- seizure medications 7. Hx Bipolar Disorder- Continue Seroquel DVT Px - Lovenox SQ
--- NOTE | 2018-08-24 15:22 | PN ---
[facility] Progress Note (SOAP) Subjective: 68 y.o. male referred for consultation , s/p transfer from [facility] for Afib , found to have Afib with RVR, COPD exacerbation . Pt reports he is doing well with meds , denies nausea/ vomiting/ diarrhea/ sweating . Reports " feel fine , the detox is going beautifully " PMHX : Paroxysmal Atrial Fibrillation, COPD, HTN, Hx of Seizure unknown if substance related, Bipolar Disorder, presented to the ER with palpitations and found to be in RVR. Active Medications Albuterol Sulfate (Ventolin 0.042trength) -) 1 amp NEB RTID [facility] Last Admin: 08/24/18 14:45 Dose: 1 amp Apixaban (Eliquis -) 5 mg PO BID [facility] Last Admin: 08/24/18 10:13 Dose: 5 mg Chlordiazepoxide HCl (Librium -) 10 mg PO Q12H PRN PRN Reason: Signs/symptoms of Withdrawal Stop: 08/26/18 05:00 Chlordiazepoxide HCl (Librium -) 15 mg PO Q8H [facility] Stop: 08/24/18 21:01 Last Admin: 08/24/18 12:59 Dose: 15 mg Chlordiazepoxide HCl (Librium -) 10 mg PO Q8H [facility] Stop: 08/26/18 05:01 Chlordiazepoxide HCl (Librium -) 10 mg PO Q8H PRN PRN Reason: Signs/symptoms of Withdrawal Stop: 08/25/18 05:00 Last Admin: 08/23/18 23:16 Dose: 10 mg Clonidine (Catapres -) 0.1 mg PO Q6H PRN PRN Reason: Withdrawal Symptoms Stop: 08/25/18 23:59 Diltiazem HCl (Cardizem Cd -) 120 mg PO BID [facility] Last Admin: 08/24/18 09:44 Dose: 120 mg Azithromycin (Zithromax 500mg Ivpb (Pre-Docked)) 500 mg in 250 mls @ 250 mls/ hr IVPB DAILY [facility] Stop: 08/27/18 10:59 Last Admin: 08/24/18 10:13 Dose: 250 mls/hr Ipratropium [place] (Atrovent 0.02% Nebulizer -) 1 amp NEB RTID [facility] Last Admin: 08/24/18 14:45 Dose: 1 amp Methadone HCl (Dolophine -) 10 mg PO ONCE ONE Stop: 08/25/18 10:01 Methadone HCl (Dolophine -) 5 mg PO ONCE ONE Stop: 08/26/18 06:01 Metoprolol Tartrate (Lopressor -) 50 mg PO BID [facility] Last Admin: 08/24/18 10:13 Dose: 50 mg Nicotine (Nicoderm Patch -) 21 mg TD DAILY [facility] Last Admin: 08/24/18 09:45 Dose: 21 mg Nicotine Polacrilex (Nicorette Gum -) 2 mg BUC Q2H PRN PRN Reason: NICOTINE REPLACEMENT RX Last Admin: 08/24/18 09:44 Dose: 2 mg Prednisone (Deltasone -) 40 mg PO DAILY [facility] Quetiapine Fumarate (Seroquel -) 100 mg PO [facility] Last Admin: 08/23/18 22:28 Dose: 100 mg Objective: 08/24/18 15:20 CBC, BMP 08/24/18 06:50 08/24/18 06:50 Vital Signs - 24 hr 08/23/18 08/23/18 08/24/18 17:29 18:18 01:09 Temperature Pulse Rate Pulse Rate [ 112 H 120 H 61 Apical] Respiratory 15 18 Rate Blood Pressure Blood Pressure 121/87 121/88 [Right Arm] O2 Sat by Pulse 98 96 Oximetry (%) 08/24/18 08/24/18 08/24/18 01:40 04:02 06:00 Temperature 98.3 F 97.9 F Pulse Rate 103 H 106 H Pulse Rate [ Apical] Respiratory 20 20 Rate Blood Pressure 145/94 128/55 L Blood Pressure [Right Arm] O2 Sat by Pulse 96 Oximetry (%) 08/24/18 08/24/18 08:35 08:36 Temperature 97.9 F Pulse Rate 116 H Pulse Rate [ Apical] Respiratory 20 20 Rate Blood Pressure 145/66 Blood Pressure [Right Arm] O2 Sat by Pulse 96 96 Oximetry (%) wnwd, resting in bed comfortably . HEENT : NCAT EOMI , many missing teeth , poor dentition Resp : no distress noted CV : on telemetry ext : no c/c/e , no tremors , no pedal edema Neuro : AAO X 3 , strength 5/5 Assessment: opioid dependence alcohol dependence Plan: continue current Methadone and Chlordiazepoxide taper . pt is not interested in inpatient rehab at this time, to consider referral for outpatient clinic closer to home ( reports he lives in [place]) upon d/c from this facility .
[2018-08-24] MEDS ORDERED: QUEtiapine FUMARATE 50 MG TABLET ONE (20:49)
[2018-08-24] MEDS: QUEtiapine FUMARATE 100 MG TABLET (FP) PO SCH (21:29)
[2018-08-25] MEDS ORDERED: chlordiazePOXIDE 5 MG CAPSULE PO PRN (05:00)
[2018-08-25] MEDS: NICOTINE POLACRILEX 2 MG GUM BUC PRN (05:51)
[2018-08-25] MEDS: chlordiazePOXIDE 5 MG CAPSULE PO SCH ×2 (05:51→12:18)
[2018-08-25 07:51] LABS: HEMATOCRIT 43.8 % (35.4-49); HEMOGLOBIN 14.6 GM/dL (11.7-16.9); MCH 30.1 pg (25.7-33.7); MCHC 33.4 g/dl (32.0-35.9); MEAN CELL VOLUME 90.2 fl (80-96); MEAN PLT VOLUME 11.5 fl (7.5-11.1); PLATELET COUNT 173 K/MM3 (134-434); RBC 4.85 M/mm3 (4.00-5.60); RDW 14.5 % (11.9-15.9); WHITE BLOOD COUNT 15.7 K/mm3 (4.0-10.0)
[2018-08-25 08:13] LABS: ANION GAP 8 MMOL/L (8-16); BLOOD UREA NITROGEN 26 mg/dL (7-18); CALCIUM 9.1 mg/dL (8.5-10.1); CHLORIDE 106 mmol/L (98-107); CO2 25 mmol/L (21-32); CREATININE 1.1 mg/dL (0.55-1.3); GLUCOSE,RANDOM 105 mg/dL (74-106); MAGNESIUM 2.6 mg/dL (1.8-2.4); PHOSPHOROUS 3.7 mg/dL (2.5-4.9); POTASSIUM 3.8 mmol/L (3.5-5.1); SODIUM 139 mmol/L (136-145)
[2018-08-25] MEDS: ALBUTEROL SO4 0.042% IH SOL 1.25 MG/3 ML VIAL.NEB NEB SCH ×2 (08:16→13:44)
[2018-08-25] MEDS: IPRATROPIUM BR 0.02% 0.5 MG/2.5 ML VIAL.NEB. NEB SCH ×2 (08:16→13:44)
[2018-08-25 08:34] VITALS: PULSE 103
[2018-08-25] MEDS ORDERED: METHADONE HCL 5 MG TABLET PO ONE (10:00)
[2018-08-25] MEDS ORDERED: predniSONE 20 MG TABLET (UD) PO SCH (10:00)
--- NOTE | 2018-08-25 10:45 | PN ---
Progress Note, Physician History of Present Illness: Rate-controlled afib, dyspnea improved. - Current Medication List Current Medications: Active Medications Albuterol Sulfate (Ventolin 0.042trength) -) 1 amp NEB RTID [facility] Last Admin: 08/25/18 08:16 Dose: 1 amp Apixaban (Eliquis -) 5 mg PO BID [facility] Last Admin: 08/24/18 21:28 Dose: 5 mg Chlordiazepoxide HCl (Librium -) 10 mg PO Q12H PRN PRN Reason: Signs/symptoms of Withdrawal Stop: 08/26/18 05:00 Chlordiazepoxide HCl (Librium -) 10 mg PO Q8H [facility] Stop: 08/26/18 05:01 Last Admin: 08/25/18 05:51 Dose: 10 mg Clonidine (Catapres -) 0.1 mg PO Q6H PRN PRN Reason: Withdrawal Symptoms Stop: 08/25/18 23:59 Diltiazem HCl (Cardizem Cd -) 120 mg PO BID [facility] Last Admin: 08/24/18 21:28 Dose: 120 mg Azithromycin (Zithromax 500mg Ivpb (Pre-Docked)) 500 mg in 250 mls @ 250 mls/ hr IVPB DAILY [facility] Stop: 08/27/18 10:59 Last Admin: 08/24/18 10:13 Dose: 250 mls/hr Ipratropium [place] (Atrovent 0.02% Nebulizer -) 1 amp NEB RTID [facility] Last Admin: 08/25/18 08:16 Dose: 1 amp Methadone HCl (Dolophine -) 5 mg PO ONCE ONE Stop: 08/26/18 06:01 Metoprolol Tartrate (Lopressor -) 50 mg PO BID [facility] Last Admin: 08/24/18 21:29 Dose: 50 mg Nicotine (Nicoderm Patch -) 21 mg TD DAILY [facility] Last Admin: 08/24/18 09:45 Dose: 21 mg Nicotine Polacrilex (Nicorette Gum -) 2 mg BUC Q2H PRN PRN Reason: NICOTINE REPLACEMENT RX Last Admin: 08/25/18 05:51 Dose: 2 mg Prednisone (Deltasone -) 40 mg PO DAILY [facility] Quetiapine Fumarate (Seroquel -) 100 mg PO HS [facility] Last Admin: 08/24/18 21:29 Dose: 100 mg - Objective Vital Signs: Vital Signs Temperature 98.7 F 08/25/18 08:29 Pulse Rate 103 H 08/25/18 08:29 Respiratory Rate 18 08/25/18 08:29 Blood Pressure 139/88 08/25/18 08:29 O2 Sat by Pulse Oximetry (%) 97 08/24/18 22:00 Constitutional: Yes: No Distress, Calm, Thin Neck: Yes: Supple Cardiovascular: Yes: Tachycardia, Pulse Irregular Respiratory: Yes: Regular, CTA Bilaterally Gastrointestinal: Yes: Normal Bowel Sounds, Soft Edema: No Labs: CBC, BMP 08/25/18 07:25 08/25/18 07:25 - ....Imaging Cat Scan: Report Reviewed (Centrilobular and paraseptal emphysematous changes, ATX both bases) EKG: Report Reviewed (Tele: Afib with improved rate-control ECG: Afib @ 123) Assessment/Plan 08/23/2018 Echo: Normal LV and RV size and fxn, mild-mod AR, normal atrial sizes - Problems (1) Atrial fibrillation with RVR Assessment/Plan: Code(s): I48.91 - UNSPECIFIED ATRIAL FIBRILLATION (2) Substance-induced sleep disorder Code(s): F19.982 - OTH PSYCHOACTIVE SUBSTANCE USE, UNSP W SLEEP DISORDER (3) Alcohol dependence with uncomplicated withdrawal Code(s): F10.230 - ALCOHOL DEPENDENCE WITH WITHDRAWAL, UNCOMPLICATED (4) Opioid dependence with withdrawal Code(s): F11.23 - OPIOID DEPENDENCE WITH WITHDRAWAL (5) Substance induced mood disorder Code(s): F19.94 - OTH PSYCHOACTIVE SUBSTANCE USE, UNSP W MOOD DISORDER (6) COPD (chronic obstructive pulmonary disease) Code(s): J44.9 - CHRONIC OBSTRUCTIVE PULMONARY DISEASE, UNSPECIFIED Qualifiers: COPD type: emphysema Emphysema type: unspecified Qualified Code(s): J43.9 - Emphysema, unspecified Not in flare and would d/c IV steroids (7) Hypertension Code(s): I10 - ESSENTIAL (PRIMARY) HYPERTENSION Qualifiers: Hypertension type: essential hypertension Qualified Code(s): I10 - Essential (primary) hypertension 1. AF with RVR, ? duration 2. HTN 3. Poly-substance abuse including Heroine, ETOH, cigarette smoking and Marijuana 4. COPD PLAN: 1. In view of persistent AF with RVR and [id number] score of 2 (HTN and age), would consider DOAC instead of Lovenox especially as he is planning to clean up his acts and be involved in detox and AA for drugs and ETOH. Started Eliquis 5 mg BID 2. Continue Metoprolol Tartrate at 50 mg BID and uptitrate (Patient denies use of Cocaine) 3. Continue Cardizem CD 120 mg BID 4. Echocardiography reviewed 5. Continue methadone and librium detox 6. If remains in AF, may consider MASON guided synchronized cardioversion if compliance assured 7. F/u in cardiology office
[2018-08-25] MEDS: APIXABAN 5 MG TABLET PO SCH (11:13)
[2018-08-25] MEDS: NICOTINE 21 MG/24 HOURS TOPICAL PATCH TD SCH (11:13)
[2018-08-25] MEDS: METOPROLOL TARTRATE 50 MG TABLET (FP) PO SCH (11:13)
[2018-08-25] MEDS: AZITHROMYCIN IVPB 500 MG/250 ML BAG IVPB SCH (11:14)
--- NOTE | 2018-08-25 12:01 | PN ---
Progress Note, Physician History of Present Illness: PULMONARY ALERT,NO DISTRESS,-SOB,-CP,-COUGH - Current Medication List Current Medications: Active Medications Albuterol Sulfate (Ventolin 0.042trength) -) 1 amp NEB RTID [facility] Last Admin: 08/25/18 08:16 Dose: 1 amp Apixaban (Eliquis -) 5 mg PO BID [facility] Last Admin: 08/25/18 11:13 Dose: 5 mg Chlordiazepoxide HCl (Librium -) 10 mg PO Q12H PRN PRN Reason: Signs/symptoms of Withdrawal Stop: 08/26/18 05:00 Chlordiazepoxide HCl (Librium -) 10 mg PO Q8H [facility] Stop: 08/26/18 05:01 Last Admin: 08/25/18 05:51 Dose: 10 mg Clonidine (Catapres -) 0.1 mg PO Q6H PRN PRN Reason: Withdrawal Symptoms Stop: 08/25/18 23:59 Diltiazem HCl (Cardizem Cd -) 120 mg PO BID [facility] Last Admin: 08/25/18 11:13 Dose: 120 mg Azithromycin (Zithromax 500mg Ivpb (Pre-Docked)) 500 mg in 250 mls @ 250 mls/ hr IVPB DAILY [facility] Stop: 08/27/18 10:59 Last Admin: 08/25/18 11:14 Dose: 250 mls/hr Ipratropium [place] (Atrovent 0.02% Nebulizer -) 1 amp NEB RTID [facility] Last Admin: 08/25/18 08:16 Dose: 1 amp Methadone HCl (Dolophine -) 5 mg PO ONCE ONE Stop: 08/26/18 06:01 Metoprolol Tartrate (Lopressor -) 50 mg PO BID [facility] Last Admin: 08/25/18 11:13 Dose: 50 mg Nicotine (Nicoderm Patch -) 21 mg TD DAILY [facility] Last Admin: 08/25/18 11:13 Dose: 21 mg Nicotine Polacrilex (Nicorette Gum -) 2 mg BUC Q2H PRN PRN Reason: NICOTINE REPLACEMENT RX Last Admin: 08/25/18 05:51 Dose: 2 mg Prednisone (Deltasone -) 40 mg PO DAILY [facility] Last Admin: 08/25/18 11:18 Dose: 40 mg Quetiapine Fumarate (Seroquel -) 100 mg PO HS [facility] Last Admin: 08/24/18 21:29 Dose: 100 mg - Objective Vital Signs: Vital Signs Temperature 98.7 F 08/25/18 08:29 Pulse Rate 103 H 08/25/18 08:29 Respiratory Rate 18 08/25/18 08:29 Blood Pressure 139/88 08/25/18 08:29 O2 Sat by Pulse Oximetry (%) 97 08/24/18 22:00 Constitutional: Yes: Well Nourished, Calm Eyes: Yes: WNL HENT: Yes: WNL Neck: Yes: WNL Cardiovascular: Yes: Pulse Irregular, S1, S2 Respiratory: Yes: CTA Bilaterally Gastrointestinal: Yes: Normal Bowel Sounds, Soft Extremities: Yes: WNL Edema: No Labs: CBC, BMP 08/25/18 07:25 08/25/18 07:25 - ....Imaging Cat Scan: Report Reviewed, Image Reviewed Assessment/Plan Problem List - Problems (1) Atrial fibrillation with RVR Code(s): I48.91 - UNSPECIFIED ATRIAL FIBRILLATION (2) COPD with acute exacerbation Code(s): J44.1 - CHRONIC OBSTRUCTIVE PULMONARY DISEASE W (ACUTE) EXACERBATION (3) Alcohol dependence with uncomplicated withdrawal Code(s): F10.230 - ALCOHOL DEPENDENCE WITH WITHDRAWAL, UNCOMPLICATED (4) Opioid dependence with withdrawal Code(s): F11.23 - OPIOID DEPENDENCE WITH WITHDRAWAL Assessment/Plan Acute COPD Exacerbation Paroxysmal Atrial Fibrillation with RVR Alcohol/Heroin Abuse - prednisone - inhaled bronchodilators - O2 to keep SpO2 >90% - azithromycin - rate control - anticoagulation - will need outpt PFTs DR SIERRA
--- NOTE | 2018-08-25 12:52 | DS ---
Physical Exam: SUBJECTIVE: Patient seen and examined OBJECTIVE: Vital Signs Period Temp Pulse Resp BP Sys/Torres Pulse Ox Last 24 Hr 97.4 F-98.7 F 92-128 18-20 110-139/60-89 97-97 PHYSICAL EXAM GENERAL: The patient is awake, alert, and fully oriented, in no acute distress. HEAD: Normal with no signs of trauma. EYES: PERRL, extraocular movements intact, sclera anicteric, conjunctiva clear. ENT: Ears normal, nares patent, oropharynx clear without exudates, moist mucous membranes. NECK: Trachea midline, full range of motion, supple. LUNGS: Breath sounds equal, clear to auscultation bilaterally, no wheezes, no crackles, no accessory muscle use. HEART: Regular rate and rhythm, S1, S2 without murmur, rub or gallop. ABDOMEN: Soft, nontender, nondistended, normoactive bowel sounds, no guarding, no rebound, no hepatosplenomegaly, no masses. EXTREMITIES: 2+ pulses, warm, well-perfused, no edema. NEUROLOGICAL: Cranial nerves II through XII grossly intact. Normal speech, gait not observed. PSYCH: Normal mood, normal affect. SKIN: Warm, dry, normal turgor, no rashes or lesions noted. LABS Laboratory Results - last 24 hr 08/23/18 08/24/18 08/25/18 05:40 06:50 07:25 WBC 15.7 H RBC 4.85 Hgb 14.6 Hct 43.8 MCV 90.2 MCH 30.1 MCHC 33.4 RDW 14.5 Plt Count 173 MPV 11.5 H Neutrophils % (Manual) 95.2 H Band Neutrophils % 1.0 Lymphocytes % (Manual) 3.8 L D Monocytes % (Manual) 0 L D Eosinophils % (Manual) 0.0 Basophils % (Manual) 0.0 Myelocytes % (Man) 0 Promyelocytes % (Man) 0 Blast Cells % (Manual) 0 Metamyelocytes 0 Hypochromia 0 Toxic Granulation 0 Dohle Bodies 0 Platelet Estimate Decreased Polychromasia 0 Poikilocytosis 0 Basophilic Stippling 0 Anisocytosis 0 Microcytosis 0 Macrocytosis 0 Spherocytes 0 Sickle Cells 0 Target Cells 0 Tear Drop Cells 0 Ovalocytes 0 Stomatocytes 0 Helmet Cells 0 [place] Bodies 0 [place] Rings 0 [place] Cells 0 Acanthocytes (Spur) 0 Rouleaux 0 Fragmented RBCs 0 Schistocytes 0 Sodium Potassium Chloride Carbon Dioxide Anion Gap BUN Creatinine Creat Clearance w eGFR Random Glucose Calcium Phosphorus Magnesium Hep C Ab Diagnostic >11.0 H HCV RNA PCR w/Genot Rflx [id number] Liver Fibrosis Interp 08/25/18 07:25 WBC RBC Hgb Hct MCV MCH MCHC RDW Plt Count MPV Neutrophils % (Manual) Band Neutrophils % Lymphocytes % (Manual) Monocytes % (Manual) Eosinophils % (Manual) Basophils % (Manual) Myelocytes % (Man) Promyelocytes % (Man) Blast Cells % (Manual) Metamyelocytes Hypochromia Toxic Granulation Dohle Bodies Platelet Estimate Polychromasia Poikilocytosis Basophilic Stippling Anisocytosis Microcytosis Macrocytosis Spherocytes Sickle Cells Target Cells Tear Drop Cells Ovalocytes Stomatocytes Helmet Cells [place] Bodies [place] Rings Mk Cells Acanthocytes (Spur) Rouleaux Fragmented RBCs Schistocytes Sodium 139 Potassium 3.8 Chloride 106 Carbon Dioxide 25 Anion Gap 8 BUN 26 H Creatinine 1.1 Creat Clearance w eGFR 66.97 Random Glucose 105 Calcium 9.1 Phosphorus 3.7 Magnesium 2.6 H Hep C Ab Diagnostic HCV RNA PCR w/Genot Rflx Liver Fibrosis Interp HOSPITAL COURSE: Date of Admission:08/22/18 Date of Discharge: 08/25/18 Pt. is a 68 y.o. M admitted from [facility] for shortness of breath on exertion and found to be in A.Fib with RVR. Pt. started on Cardizem drip as home dose was insufficient to rate control after missing last two doses while at [facility]. Pt. switched over to Metoprolol and started on Eliquis. Echo showed EF of 65-70%, mild-mod. aortic regurgitation, mild annular calcification. Cardiology consult appreciated. Pt. was also found to be in a mild COPD exacerbation, given reduced albuterol Duoneb treatment with short course of steroids. CT Chest showed mild bibasilar atelectasis with suspicion of mild bronchiectasis. Pulmonology consult appreciated.Pt. home medications adjusted and added new medications as detailed below. CIWA and COWs protocol followed. Addiction Medicine consult appreciated. Pt. counseled on follow up as detailed below. Hospital course discussed and agreed upon with Pt., family and medical staff. Minutes to complete discharge: 40 Discharge Summary Reason For Visit: ALCOHOL DEPENDENCE WITH UNCOMPLICATED WITHDRAWAL Current Active Problems Atrial fibrillation with RVR (Acute) COPD with acute exacerbation (Acute) Condition: Improved - Instructions Diet, Activity, Other Instructions: You came in for A.Fib and for COPD exacerbation You came in withdrawing for alcohol and heroin We treated you with your home medications and made adjustments We have discontinued your Propanolol and started you on Metoprolol 50mg TWICE a day, please take as prescribed We have started you on a new inhaler to better manage your COPD, Symbicort. Please take 2 puffs every day, TWICE a day as prescribed. Please rinse your mouth after taking the puffs to prevent fungal infection in the mouth. We have started you on Eliquis 5mg TWICE a day. This is a blood thinner Please take as prescribed Please check your gums, urine and stool for bleeding. Please avoid bumping into objects or falling down as you are at increased risk for bleeding. Please complete Librium for two more doses of 10 mg once at 9pm tonight and the last dose tomorrow morning. Please complete your Methadone dose tomorrow of 5 mg. Please follow up with a [facility] Pul[facility] Tender for an MRCP. We noticed on an abdominal ultrasound that you had a fatty liver and dilated pancreatic duct. Please follow up with your Primary Care Doctor within 1 week Please follow up with your Top And Seat Cover Fitter Dr. Rapp within 1 week to get Pulmonary function tests Please return to the ED if you are having palpitations, chest pain, fever, chills, bleeding that wont stop, worsening shortness of breath or wheezing. Referrals: Yovanny Rapp MD [Staff Physician] - ON STAFF,NOT [Non Staff, Medical] - 1 Week (Please follow up with Dr. Farris ) Rudi Mi MD [Staff Physician] - Disposition: HOME - Home Medications Comprehensive Discharge Medication List: Ambulatory Orders Quetiapine Fumarate [Seroquel -] 200 mg PO HS 01/19/17 Diltiazem Cd [Cardizem Cd -] 120 mg PO BID 08/22/18 Apixaban [Eliquis -] 5 mg PO BID #30 tablet 08/25/18 Budesonide/Formeterol Fumarate [SYMBICORT 80/4.5mcg -] 2 inh PO BID #1 cannister 08/25/18 predniSONE [Deltasone -] 40 mg PO DAILY #1 tablet 08/25/18 This patient is new to me today: No Emergency Visit: Yes ED Registration Date: 08/22/18 Care time: The patient presented to the Emergency Department on the above date and was hospitalized for further evaluation of their emergent condition. Critical Care patient: No - Discharge Referral Referred to [facility] Med P.C.: No
[2018-08-25 14:09] VITALS: BP 129/78; TEMP 97.5
--- NOTE | 2018-08-25 14:53 | PN ---
Teaching Attending Note Name of Resident: Heath Dias ATTENDING PHYSICIAN STATEMENT I saw and evaluated the patient. I reviewed the resident's note and discussed the case with the resident. I agree with the resident's findings and plan as documented. SUBJECTIVE: Feels much better - no palpitations, sweating, nausea, vomiting, tremor. No fever/chills. OBJECTIVE: Afebrile, Hemodynamically Stable. Last Vital Signs Temp Pulse Resp BP Pulse Ox 97.5 F L 103 H 20 129/78 97 08/25/18 14:08 08/25/18 14:08 08/25/18 14:08/25/18 14:08 08/24/18 22:00 Heart - S1, S2, irregular Lungs - clear to auscultation Abdomen - Soft, non-tender. Bowel Sounds normal. Extremities - no edema, no calf tenderness Neuro - AAO x 3. No tremor. Tone/Power normal. Laboratory Results - last 24 hr 08/23/18 08/25/18 08/25/18 05:40 07:25 07:25 WBC 15.7 H RBC 4.85 Hgb 14.6 Hct 43.8 MCV 90.2 MCH 30.1 MCHC 33.4 RDW 14.5 Plt Count 173 MPV 11.5 H Sodium 139 Potassium 3.8 Chloride 106 Carbon Dioxide 25 Anion Gap 8 BUN 26 H Creatinine 1.1 Creat Clearance w eGFR 66.97 Random Glucose 105 Calcium 9.1 Phosphorus 3.7 Magnesium 2.6 H Hep C Ab Diagnostic >11.0 H HCV RNA PCR w/Genot Rflx [id number] Liver Fibrosis Interp Current Medications Generic Name Dose Route Start Last Admin Trade Name Kurtisq PRN Reason Stop Dose Admin Albuterol Sulfate 1 amp 08/23/18 14:00 08/25/18 13:44 Ventolin 0.042trength) - NEB 1 amp RTID LORENZA Administration Apixaban 5 mg 08/24/18 10:00 08/25/18 11:13 Eliquis - PO 5 mg BID LORENZA Administration Chlordiazepoxide HCl 10 mg 08/25/18 05:00 Librium - PO 08/26/18 05:00 Q12H PRN Signs/symptoms of Withdrawal Chlordiazepoxide HCl 10 mg 08/25/18 05:00 08/25/18 12:18 Librium - PO 08/26/18 05:01 10 mg Q8H LORENZA Administration Clonidine 0.1 mg 08/23/18 15:19 Catapres - PO 08/25/18 23:59 Q6H PRN Withdrawal Symptoms Diltiazem HCl 120 mg 08/23/18 10:00 08/25/18 11:13 Cardizem Cd - PO 120 mg BID LORENZA Administration Azithromycin 500 mg in 250 mls @ 250 mls/hr 08/24/18 10:00 08/25/18 11:14 Zithromax 500mg Ivpb (Pre-Docked) IVPB 08/27/18 10:59 250 mls/hr DAILY LORENZA Administration Ipratropium [place] 1 amp 08/23/18 14:00 08/25/18 13:44 Atrovent 0.02% Nebulizer - NEB 1 amp RTID LORENZA Administration Methadone HCl 5 mg 08/26/18 06:00 Dolophine - PO 08/26/18 06:01 ONCE ONE Metoprolol Tartrate 50 mg 08/24/18 10:00 08/25/18 11:13 Lopressor - PO 50 mg BID LORENZA Administration Nicotine 21 mg 08/23/18 12:15 08/25/18 11:13 Nicoderm Patch - TD 21 mg DAILY LORENZA Administration Nicotine Polacrilex 2 mg 08/22/18 18:42 08/25/18 05:51 Nicorette Gum - BUC 2 mg Q2H PRN Administration NICOTINE REPLACEMENT RX Prednisone 40 mg 08/25/18 10:00 08/25/18 11:18 Deltasone - PO 40 mg DAILY LORENZA Administration Quetiapine Fumarate 100 mg 08/22/18 22:00 08/24/18 21:29 Seroquel - PO 100 mg HS LORENZA Administration ASSESSMENT AND PLAN: 68 year old male with history of Polysubstance Abuse (Alcohol, Heroin, Tobacco, MJ), Paroxysmal Atrial Fibrillation, COPD, HTN, Hx of Seizure ?substance related , Bipolar Disorder, presented to the ER with palpitations and found to be in RVR. 1. Atrial Fibrillation with RVR - rate better controlled. Off Cardizem gtt - Propanolol changed to Metoprolol. Continue Cardizem PO. TSH normal. Eval by Cardio - started on AC with Eliquis. For possible [facility] guided synchronized cardioversion as out-patient if he remains in Atrial Fibrillation. Echo - normal EF, moderate AR. 2. Acute Exacerbation COPD - Continue Prednisone and Azithromycin for total 5 days. Continue Bronchodilator Nebs. Outpatient PFTs as per Pulm. 3. Acute Alcohol and Heroin Withdrawal - on Librium protocol for Alcohol and Methadone for COWS protocol for Opiate Withdrawal - for two additional doses of Librium and 1 additional dose of Methadone - to be completed on discharge. Medically stable for discharge. No further evidence of withdrawal. Declines in- patient detox/rehab. Agress to follow with AA and PC as out-patient. 4. HTN - Continue Lopressor and Diltiazem. 5. Elevated Transaminases, possibly sec to Hepatitis C - Abdomen US: Fatty liver , prominent pancreatic duct. Asymptomatic. Referral to GI for further Investigation/Hep C treatment/possible MRCP as an outpatient. 6. Hx Seizure - 1 seizure episode 2 years ago ?substance related. Not on anti- seizure medications 7. Hx Bipolar Disorder - Continue Seroquel Medically stable for discharge with Cardio and GI follow up.
[2018-08-26] MEDS ORDERED: METHADONE HCL 5 MG TABLET PO ONE (06:00)
[2018-08-26 07:22] LABS: HEP.C VIRUS AB >11.0 s/co ratio (0.0-0.9)
== END 2018-08-25 17:00 | disposition home or self-care (01) | DRG 191 ==
LOC: JER 14:15 → JERBED 18:57 → J4W 08-24 01:51
PROVIDERS: ADMIT Internal Medicine
DX: J44.1 Chronic obstructive pulmonary disease with (acute) exacerbation (principal); F10.230 Alcohol dependence with withdrawal, uncomplicated; F11.23 Opioid dependence with withdrawal; I48.0 Paroxysmal atrial fibrillation; F19.982 Other psychoactive substance use, unspecified with psychoactive substance-induced sleep disorder; F19.94 Other psychoactive substance use, unspecified with psychoactive substance-induced mood disorder; I10 Essential (primary) hypertension; F31.9 Bipolar disorder, unspecified; B19.20 Unspecified viral hepatitis C without hepatic coma; F41.8 Other specified anxiety disorders; K76.0 Fatty (change of) liver, not elsewhere classified; R00.0 Tachycardia, unspecified; R56.9 Unspecified convulsions; R74.0 Nonspecific elevation of levels of transaminase and lactic acid dehydrogenase [LDH]; Z91.19 Patient's noncompliance with other medical treatment and regimen
CPT/HCPCS: 36415; 71046-TC-FY; 71250-TC; 76705-TC; 80048; 80053; 80061; 80074; 80307; 82550; 83721; 83735; 84100; 84443; 84484; 85025; 85027; 86803; 90670; 90688; 93005; 93010; 93306-TC; 94640; 99285-25; G0008; G0009; J0735; J7030